=== PATIENT | female | born 1975 | race Caucasian/White ===

== ENCOUNTER → 2016-12-14 | Outpatient (CLI) | payer OTHER ==
[~2016-12-14] MED LIST: DICY10SO PO; FOLITAB11 PO; MAGN400T5 PO; MAXA5TAB10 PO; PROT20TA11 PO; RANI300T PO; SUCR1TA PO; VITAD1000T PO
[2016-12-14 16:54] LABS: BASO % 0.7 % (0.0-1.0); EOS # 0.1 K/mm3 (0.0-0.50); EOS % 1.4 % (0.0-3.0); LARGE UNSTAINED CELL # 0.1 K/mm3 (0.0-0.4); LARGE UNSTAINED CELL % 1.9 % (0.0-4.0); LYMPH # 2.2 K/mm3 (1.5-4.5); LYMPH % 27.4 % (24.0-44.0); MEAN CORPUSCULAR HEMOGLOBIN 29.9 pg (27.0-33.0); MEAN CORPUSCULAR HGB CONC 33.5 g/dl (32.0-36.5); MEAN CORPUSCULAR VOLUME 89.4 fl (80.0-96.0); MONO # 0.6 K/mm3 (0.0-0.8); MONO % 8.2 % (0.0-5.0); NEUTROPHILS # 4.5 K/mm3 (1.8-7.7); NEUTROPHILS % 60.4 % (36.0-66.0); PLATELET COUNT, AUTOMATED 434 k/mm3 (150-450); WHITE BLOOD COUNT 7.4 K/mm3 (4.0-10.0)
[2016-12-14 17:04] LABS: ALBUMIN/GLOBULIN RATIO 1.05 (1.00-1.93); ALKALINE PHOSPHATASE 53 U/L (45-117); ALT/SGPT 44 U/L (12-78); ANION GAP 8 MEQ/L (8-16); AST/SGOT 24 U/L (15-37); BILIRUBIN,TOTAL 0.5 MG/DL (0.2-1.0); BLOOD UREA NITROGEN 10 MG/DL (7-18); CALCIUM LEVEL 9.1 MG/DL (8.5-10.1); CARBON DIOXIDE LEVEL 29 MEQ/L (21-32); CHLORIDE LEVEL 102 MEQ/L (98-107); CHOLESTEROL LEVEL 130 MG/DL (<200); CREATININE FOR GFR 0.86 MG/DL (0.55-1.02); FERRITIN 34 NG/ML (8-252); FREE T4 1.23 NG/DL (0.76-1.46); GLOMERULAR FILTRATION RATE > 60.0 (>58); GLUCOSE, FASTING 88 MG/DL (70-105); MAGNESIUM LEVEL 2.1 MG/DL (1.8-2.4); POTASSIUM SERUM 4.3 MEQ/L (3.5-5.1); SODIUM LEVEL 139 MEQ/L (136-145); TOTAL IRON BINDING CAPACITY 393 UG/DL (250-450); TOTAL PROTEIN 7.8 GM/DL (6.4-8.2); TRIGLYCERIDES LEVEL 78 MG/DL (<150)
[2016-12-17 00:06] LABS: Lyme Disease IgG/IgM Antibodie <0.91 ISR (0.00-0.90); Lyme Disease IgM Ab Quantitati <0.80 index (0.00-0.79)
== END ==
LOC: M WUC 12:03
PROVIDERS: ATTEND Physician Assistant
DX: R53.83 Other fatigue (principal)

== ENCOUNTER → 2017-02-26 | Outpatient (CLI) | payer OTHER | LOC: M WUC 14:27 | PROVIDERS: ATTEND Internal Medicine Cardiovascular Disease | DX: R07.9 Chest pain, unspecified (principal) ==

== ENCOUNTER → 2017-04-09 | Outpatient (CLI) | payer OTHER ==
[~2017-04-09] MED LIST changes: +ASPI1TAB PO; +IBUP80TA PO
--- NOTE | 2017-04-10 09:59 | REP ---
Clinical: Acute pelvic pain . Technique: Transabdominal pelvic ultrasound followed by transvaginal examination for better evaluation of the endometrium and adnexa. Findings: Bladder is unremarkable and measures 9.6 x 8.3 x 5.4 cm . Normal anteverted uterus measures 9.0 x 3.4 x 4.5 cm . The endometrial complex measures 14.7 mm thickness. No discrete uterine or endometrial abnormalities are appreciated. Few Nabothian cysts identified in the lower uterine segment. Bilateral ovaries are normal in appearance. Right ovary measures 3.8 x 2.3 x 2.5 cm with 1.5 cm involuting physiologic cyst. Left ovary measures 2.9 x 1.8 x 1.5 cm. No pelvic fluid or adnexal mass lesion. Impression: 1. Essentially normal pelvic ultrasound. 2. Endometrial thickening likely related to menstrual cycle.
== END ==
LOC: M WHC 14:58
PROVIDERS: ATTEND Nurse Practitioner Women's Health
DX: R10.2 Pelvic and perineal pain (principal)

== ENCOUNTER → 2017-05-21 | Outpatient (CLI) | payer OTHER ==
[2017-05-21 20:55] LABS: BASO # 0.1 K/mm3 (0.0-0.2); BASO % 0.6 % (0.0-1.0); EOS # 0.1 K/mm3 (0.0-0.50); EOS % 1.3 % (0.0-3.0); LARGE UNSTAINED CELL # 0.1 K/mm3 (0.0-0.4); LARGE UNSTAINED CELL % 1.2 % (0.0-4.0); LYMPH # 2.4 K/mm3 (1.5-4.5); MEAN CORPUSCULAR HGB CONC 32.6 g/dl (32.0-36.5); MEAN CORPUSCULAR VOLUME 91.9 fl (80.0-96.0); MONO # 0.6 K/mm3 (0.0-0.8); MONO % 5.6 % (0.0-5.0); NEUTROPHILS # 7.2 K/mm3 (1.8-7.7); NEUTROPHILS % 69.3 % (36.0-66.0); PLATELET COUNT, AUTOMATED 371 k/mm3 (150-450); RED CELL DISTRIBUTION WIDTH 13.2 % (11.5-14.5); WHITE BLOOD COUNT 10.4 K/mm3 (4.0-10.0)
[2017-05-21 21:05] LABS: PERCENT SATURATION 13.5 % (13.2-45.0); URIC ACID 3.9 MG/DL (2.6-6.0)
[2017-05-21 22:09] LABS: ERYTHROCYTE SEDIMENTATION RATE 20 mm/hr (0-20)
[2017-05-29 00:11] LABS: Lyme Disease IgG/IgM Antibodie <0.91 ISR (0.00-0.90); Lyme Disease IgM Ab Quantitati <0.80 index (0.00-0.79)
== END ==
LOC: M WUC 15:58
PROVIDERS: ATTEND Physician Assistant
DX: M25.551 Pain in right hip (principal); D50.9 Iron deficiency anemia, unspecified

== ENCOUNTER → 2017-06-13 | Outpatient (REF) | payer OTHER | LOC: M LAB REF 16:58 | PROVIDERS: ATTEND Physician Assistant | DX: R30.0 Dysuria (principal) ==

== ENCOUNTER → 2017-06-21 | Outpatient (REF) | payer OTHER | LOC: M LAB REF 16:48 | PROVIDERS: ATTEND Physician Assistant | DX: R30.0 Dysuria (principal) ==

== ENCOUNTER → 2017-08-01 | Outpatient (CLI) | payer OTHER ==
[2017-08-01 19:47] LABS: MEAN CORPUSCULAR HEMOGLOBIN 29.2 pg (27.0-33.0); MEAN CORPUSCULAR HGB CONC 32.8 g/dl (32.0-36.5); MEAN CORPUSCULAR VOLUME 89.2 fl (80.0-96.0); RED CELL DISTRIBUTION WIDTH 13.1 % (11.5-14.5); WHITE BLOOD COUNT 12.1 10^3/uL (4.0-10.0)
[2017-08-01 20:07] LABS: CBCMD ORDERED? YES (YES)
== END ==
LOC: M WUC 15:49
PROVIDERS: ATTEND Physician Assistant
DX: D72.89 Other specified disorders of white blood cells (principal)

== ENCOUNTER → 2017-08-24 | Outpatient (REF) | payer OTHER ==
[2017-08-24 19:22] LABS: REASON FOR REVIEW COMPREHENSIVE REVIEW
== END ==
LOC: M LAB REF 16:25
PROVIDERS: ATTEND Physician Assistant
DX: D72.89 Other specified disorders of white blood cells (principal)

== ENCOUNTER → 2017-09-06 | Outpatient (REF) | payer OTHER | LOC: M SFHCWAGY 16:04 | PROVIDERS: ATTEND Nurse Practitioner Women's Health | DX: Z12.4 Encounter for screening for malignant neoplasm of cervix (principal) ==

== ENCOUNTER 2017-10-22 11:12 | Day surgery (SDC) | payer OTHER ==
[2017-10-22] MEDS: NS 1,000 ML IV (11:45)
[2017-10-22] MEDS ORDERED: PROPOFOL 200 MG/20 ML VIAL As Ordered (12:43)
[2017-10-22] MEDS ORDERED: ePHEDrine SULFATE 25 MG/5 ML(5MG/ML) SYRINGE As Ordered (12:43)
== END 2017-10-22 13:27 | disposition home or self-care (01) ==
LOC: M OPP 11:12
DX: K58.2 Mixed irritable bowel syndrome (principal); R19.4 Change in bowel habit; K64.8 Other hemorrhoids; K30 Functional dyspepsia; D50.9 Iron deficiency anemia, unspecified; K31.7 Polyp of stomach and duodenum; K21.9 Gastro-esophageal reflux disease without esophagitis; Z80.0 Family history of malignant neoplasm of digestive organs; R00.2 Palpitations; R06.02 Shortness of breath; M79.7 Fibromyalgia; M45.9 Ankylosing spondylitis of unspecified sites in spine; G43.909 Migraine, unspecified, not intractable, without status migrainosus; G47.30 Sleep apnea, unspecified; Z88.1 Allergy status to other antibiotic agents; Z88.8 Allergy status to other drugs, medicaments and biological substances; Z79.82 Long term (current) use of aspirin; Z79.899 Other long term (current) drug therapy
CPT/HCPCS: 45380

== ENCOUNTER → 2017-10-30 | Outpatient (CLI) | payer OTHER ==
[2017-10-30 20:39] LABS: FREE T4 1.09 NG/DL (0.76-1.46)
[2017-10-31 09:40] LABS: APPEARANCE, URINE CLOUDY (CLEAR); BACTERIA, URINE AUTO NEGATIVE (NEGATIVE); BILIRUBIN, URINE AUTO NEGATIVE (NEGATIVE); BLOOD, URINE BLOOD 1+ (NEGATIVE); COLOR, URINE YELLOW (YELLOW); GLUCOSE, URINE (UA) AUTO NEGATIVE (NEGATIVE); KETONE, URINE AUTO NEGATIVE (NEGATIVE); LEUKOCYTE ESTERASE, URINE AUTO TRACE (NEGATIVE); NITRITE, URINE AUTO NEGATIVE (NEGATIVE); PROTEIN, URINE AUTO NEGATIVE (NEGATIVE); RBC, URINE AUTO 2 /HPF (0-3); SPECIFIC GRAVITY URINE AUTO 1.008 (1.002-1.035); SQUAMOUS EPITHELIAL CELL UR AU 14 /HPF (0-6); UROBILINOGEN, URINE AUTO 0.2 mg/dL (0.0-2.0); WBC, URINE AUTO 2 /HPF (0-3); YEAST LIKE CELL URINE AUTO SMALL
== END ==
LOC: M WUC 15:58
DX: E04.1 Nontoxic single thyroid nodule (principal); R30.0 Dysuria; R31.9 Hematuria, unspecified
CPT/HCPCS: 84443

== ENCOUNTER → 2017-11-02 | Outpatient (REF) | payer OTHER ==
[2017-11-02 21:43] LABS: APPEARANCE, URINE MANUAL HAZY (CLEAR); COLOR, URINE MANUAL YELLOW (YELLOW)
[2017-11-02 21:44] LABS: BILIRUBIN, URINE MANUAL NEGATIVE (NEGATIVE); BLOOD URINE MANUAL TRACE (NEGATIVE); GLUCOSE, URINE (UA) MANUAL NEGATIVE (NEGATIVE); KETONE, URINE MANUAL NEGATIVE (NEGATIVE); LEUKOCYTE ESTERASE, URINE MAN NEGATIVE (NEGATIVE); MICROSCOPIC INDICATED? MAN YES (NO); NITRITE, URINE MANUAL NEGATIVE (NEGATIVE); PH,URINE MAN 6.5 UNITS (5.0 - 7.0); PROTEIN, URINE MANUAL NEGATIVE (NEGATIVE); UROBILINOGEN, URINE MANUAL NORMAL (NORMAL)
[2017-11-02 22:00] LABS: SQUAMOUS EPITHELIAL CELL URINE LARGE AMOUNT /hpf (SMALL AMT)
[2017-11-02 22:01] LABS: BACTERIA, URINE LARGE AMOUNT; HYALINE CAST, URINE NONE SEEN /lpf (0-1); MICROSCOPIC EXAM PERFORMED; MUCUS, URINE SMALL AMOUNT (NEGATIVE); YEAST, URINE MOD AMOUNT
== END ==
LOC: M LAB REF 19:04
DX: R30.0 Dysuria (principal); R10.31 Right lower quadrant pain

== ENCOUNTER → 2017-12-21 | Outpatient (CLI) | payer OTHER ==
[2017-12-21 17:12] LABS: BASO # 0.1 10^3/uL (0.0-0.2); BASO % 0.6 % (0.0-1.0); EOS # 0.1 10^3/uL (0.0-0.50); EOS % 0.9 % (0.0-3.0); HEMATOCRIT 36.8 % (36.0-47.0); HEMOGLOBIN 11.9 g/dl (12.0-16.0); IMMATURE GRANULOCYTE % 0.1 % (0-3.0); LYMPH # 2.1 10^3/uL (1.5-4.5); LYMPH % 25.5 % (24.0-44.0); MEAN CORPUSCULAR HEMOGLOBIN 27.2 pg (27.0-33.0); MEAN CORPUSCULAR HGB CONC 32.3 g/dl (32.0-36.5); MONO # 0.6 10^3/uL (0.0-0.8); NEUTROPHILS # 5.4 10^3/uL (1.8-7.7); NEUTROPHILS % 65.9 % (36.0-66.0); PLATELET COUNT, AUTOMATED 422 10^3/uL (150-450); RED BLOOD COUNT 4.38 10^6/uL (4.00-5.40); RED CELL DISTRIBUTION WIDTH 13.9 % (11.5-14.5); WHITE BLOOD COUNT 8.2 10^3/uL (4.0-10.0)
[2017-12-21 17:42] LABS: ERYTHROCYTE SEDIMENTATION RATE 26 mm/hr (0-20)
== END ==
LOC: M WUC 14:16
DX: R22.1 Localized swelling, mass and lump, neck (principal)
CPT/HCPCS: 85025

== ENCOUNTER → 2017-12-26 | Outpatient (CLI) | payer OTHER ==
[2017-12-26 14:22] LABS: D-DIMER QUANT < 270.0 ng/ml (<500)
[2017-12-26 14:26] LABS: ALBUMIN 3.7 GM/DL (3.2-5.2); ALBUMIN/GLOBULIN RATIO 0.95 (1.00-1.93); ALKALINE PHOSPHATASE 55 U/L (45-117); ALT/SGPT 30 U/L (12-78); ANION GAP 8 MEQ/L (8-16); AST/SGOT 17 U/L (7-37); BILIRUBIN,TOTAL 0.5 MG/DL (0.2-1.0); BLOOD UREA NITROGEN 10 MG/DL (7-18); CARBON DIOXIDE LEVEL 28 MEQ/L (21-32); CHLORIDE LEVEL 104 MEQ/L (98-107); CREATININE FOR GFR 0.72 MG/DL (0.55-1.30); GLOMERULAR FILTRATION RATE > 60.0 (>58); GLUCOSE, FASTING 80 MG/DL (70-100); SODIUM LEVEL 140 MEQ/L (136-145); TOTAL PROTEIN 7.6 GM/DL (6.4-8.2)
[2017-12-26 15:00] LABS: ERYTHROCYTE SEDIMENTATION RATE 22 mm/hr (0-20)
== END ==
LOC: M WUC 12:47
DX: R06.02 Shortness of breath (principal)

== ENCOUNTER → 2018-02-05 | Outpatient (CLI) | payer OTHER | LOC: M SLEEP 19:55 | DX: G47.33 Obstructive sleep apnea (adult) (pediatric) (principal) | CPT/HCPCS: 95811 ==

== ENCOUNTER → 2018-02-14 | Outpatient (CLI) | payer OTHER ==
[2018-02-14 18:05] LABS: HEMATOCRIT 36.8 % (36.0-47.0); HEMOGLOBIN 11.7 g/dl (12.0-15.5); MEAN CORPUSCULAR HEMOGLOBIN 26.8 pg (27.0-33.0); MEAN CORPUSCULAR HGB CONC 31.8 g/dl (32.0-36.5); MEAN CORPUSCULAR VOLUME 84.4 fl (80.0-96.0); PLATELET COUNT, AUTOMATED 424 10^3/uL (150-450); RED BLOOD COUNT 4.36 10^6/uL (4.00-5.40); RED CELL DISTRIBUTION WIDTH 14.4 % (11.5-14.5); WHITE BLOOD COUNT 9.8 10^3/uL (4.0-10.0)
[2018-02-14 18:38] LABS: IRON (FE) 22 UG/DL (50-170); PERCENT SATURATION 5.2 % (13.2-45.0); TOTAL IRON BINDING CAPACITY 426 UG/DL (250-450)
== END ==
LOC: M WUC 15:53
DX: R06.02 Shortness of breath (principal)

== ENCOUNTER → 2018-02-28 | Outpatient (CLI) | payer OTHER ==
[2018-02-28 17:46] LABS: TROPONIN I < 0.02 NG/ML (< 0.10)
== END ==
LOC: M SMT 15:06
DX: R07.9 Chest pain, unspecified (principal)

== ENCOUNTER → 2018-03-06 | Outpatient (REF) | payer OTHER ==
[2018-03-07 10:59] LABS: BASO # 0.1 10^3/uL (0.0-0.2); BASO % 0.6 % (0.0-1.0); EOS # 0.1 10^3/uL (0.0-0.50); HEMATOCRIT 38.4 % (36.0-47.0); IMMATURE GRANULOCYTE % 0.1 % (0-3.0); LYMPH # 2.4 10^3/uL (1.5-4.5); LYMPH % 29.5 % (24.0-44.0); MEAN CORPUSCULAR HEMOGLOBIN 26.8 pg (27.0-33.0); MEAN CORPUSCULAR HGB CONC 31.3 g/dl (32.0-36.5); MEAN CORPUSCULAR VOLUME 85.9 fl (80.0-96.0); MONO # 0.5 10^3/uL (0.0-0.8); MONO % 6.1 % (0.0-5.0); NEUTROPHILS % 62.7 % (36.0-66.0); PLATELET COUNT, AUTOMATED 451 10^3/uL (150-450); RED BLOOD COUNT 4.47 10^6/uL (4.00-5.40); RED CELL DISTRIBUTION WIDTH 15.8 % (11.5-14.5)
[2018-03-07 11:49] LABS: ALBUMIN 3.9 GM/DL (3.2-5.2); ALBUMIN/GLOBULIN RATIO 0.91 (1.00-1.93); ALKALINE PHOSPHATASE 58 U/L (45-117); ALT/SGPT 30 U/L (12-78); ANION GAP 10 MEQ/L (8-16); AST/SGOT 20 U/L (7-37); BILIRUBIN,TOTAL 0.5 MG/DL (0.2-1.0); BLOOD UREA NITROGEN 11 MG/DL (7-18); C REACTIVE PROTEIN QUANTITATIV 0.97 MG/DL (0.00-0.30); CALCIUM LEVEL 8.9 MG/DL (8.5-10.1); CARBON DIOXIDE LEVEL 26 MEQ/L (21-32); CHLORIDE LEVEL 101 MEQ/L (98-107); CREATININE FOR GFR 0.84 MG/DL (0.55-1.30); FREE T4 1.13 NG/DL (0.76-1.46); GLOMERULAR FILTRATION RATE > 60.0 (>58); GLUCOSE, FASTING 73 MG/DL (70-100); POTASSIUM SERUM 4.1 MEQ/L (3.5-5.1); SODIUM LEVEL 137 MEQ/L (136-145); THYROID STIMULATING HORMONE 0.846 uIU/ML (0.358-3.740); TOTAL PROTEIN 8.2 GM/DL (6.4-8.2)
[2018-03-07 12:19] LABS: ERYTHROCYTE SEDIMENTATION RATE 28 mm/hr (0-20)
[2018-03-07 14:47] LABS: TOTAL 25(OH) VITAMIN D 20.6 NG/ML (30.0-100.0)
== END ==
LOC: M LABSMT 10:25
DX: A69.20 Lyme disease, unspecified (principal); E04.1 Nontoxic single thyroid nodule
CPT/HCPCS: 84443

== ENCOUNTER → 2018-03-27 | Outpatient (CLI) | payer OTHER | LOC: M RAD 11:07 | DX: R22.41 Localized swelling, mass and lump, right lower limb (principal) ==

== ENCOUNTER → 2018-03-27 | Outpatient (CLI) | payer OTHER ==
[2018-03-27 11:44] LABS: BASO # 0.1 10^3/uL (0.0-0.2); BASO % 0.7 % (0.0-1.0); EOS # 0.1 10^3/uL (0.0-0.50); EOS % 1.3 % (0.0-3.0); HEMATOCRIT 39.8 % (36.0-47.0); HEMOGLOBIN 12.8 g/dl (12.0-15.5); IMMATURE GRANULOCYTE % 0.2 % (0-3.0); LYMPH # 2.2 10^3/uL (1.5-4.5); LYMPH % 23.4 % (24.0-44.0); MEAN CORPUSCULAR HEMOGLOBIN 27.8 pg (27.0-33.0); MEAN CORPUSCULAR HGB CONC 32.2 g/dl (32.0-36.5); MEAN CORPUSCULAR VOLUME 86.3 fl (80.0-96.0); MONO # 0.7 10^3/uL (0.0-0.8); MONO % 6.9 % (0.0-5.0); NEUTROPHILS # 6.5 10^3/uL (1.8-7.7); NEUTROPHILS % 67.5 % (36.0-66.0); PLATELET COUNT, AUTOMATED 392 10^3/uL (150-450); RED BLOOD COUNT 4.61 10^6/uL (4.00-5.40); RED CELL DISTRIBUTION WIDTH 16.2 % (11.5-14.5); WHITE BLOOD COUNT 9.6 10^3/uL (4.0-10.0)
[2018-03-27 11:55] LABS: PROTHROMBIN TIME 12.2 SECONDS (12.4-14.5)
[2018-03-27 11:56] LABS: PARTIAL THROMBOPLASTIN TIME 29.7 SECONDS (26.8-37.9)
[2018-03-27 12:05] LABS: D-DIMER QUANT < 270.0 ng/ml (<500)
[2018-03-27 12:25] LABS: ALBUMIN 3.8 GM/DL (3.2-5.2); ALBUMIN/GLOBULIN RATIO 0.97 (1.00-1.93); ALKALINE PHOSPHATASE 55 U/L (45-117); ALT/SGPT 26 U/L (12-78); ANION GAP 10 MEQ/L (8-16); AST/SGOT 13 U/L (7-37); BILIRUBIN,TOTAL 0.3 MG/DL (0.2-1.0); BLOOD UREA NITROGEN 11 MG/DL (7-18); CALCIUM LEVEL 8.8 MG/DL (8.5-10.1); CARBON DIOXIDE LEVEL 29 MEQ/L (21-32); CHLORIDE LEVEL 102 MEQ/L (98-107); GLOMERULAR FILTRATION RATE > 60.0 (>58); GLUCOSE, FASTING 87 MG/DL (70-100); POTASSIUM SERUM 4.2 MEQ/L (3.5-5.1); SODIUM LEVEL 141 MEQ/L (136-145); TOTAL PROTEIN 7.7 GM/DL (6.4-8.2)
== END ==
LOC: M WUC 10:24
DX: R22.41 Localized swelling, mass and lump, right lower limb (principal)
CPT/HCPCS: 80053

== ENCOUNTER → 2018-04-18 | Outpatient (CLI) | payer OTHER ==
[2018-04-18 15:16] LABS: BASO # 0.1 10^3/uL (0.0-0.2); BASO % 0.6 % (0.0-1.0); EOS # 0.1 10^3/uL (0.0-0.50); EOS % 1.1 % (0.0-3.0); HEMATOCRIT 40.8 % (36.0-47.0); HEMOGLOBIN 13.1 g/dl (12.0-15.5); IMMATURE GRANULOCYTE % 0.4 % (0-3.0); LYMPH # 2.1 10^3/uL (1.5-4.5); MEAN CORPUSCULAR HEMOGLOBIN 28.2 pg (27.0-33.0); MEAN CORPUSCULAR HGB CONC 32.1 g/dl (32.0-36.5); MEAN CORPUSCULAR VOLUME 87.7 fl (80.0-96.0); MONO # 0.6 10^3/uL (0.0-0.8); MONO % 6.8 % (0.0-5.0); NEUTROPHILS # 5.5 10^3/uL (1.8-7.7); NEUTROPHILS % 66.1 % (36.0-66.0); PLATELET COUNT, AUTOMATED 445 10^3/uL (150-450); RED BLOOD COUNT 4.65 10^6/uL (4.00-5.40); RED CELL DISTRIBUTION WIDTH 15.8 % (11.5-14.5); WHITE BLOOD COUNT 8.3 10^3/uL (4.0-10.0)
[2018-04-18 15:27] LABS: IRON (FE) 37 UG/DL (50-170); PERCENT SATURATION 9.8 % (13.2-45.0); TOTAL IRON BINDING CAPACITY 378 UG/DL (250-450)
== END ==
LOC: M ADAMS 11:37
DX: D50.9 Iron deficiency anemia, unspecified (principal)
CPT/HCPCS: 83550

== ENCOUNTER → 2018-05-08 | Outpatient (CLI) | payer OTHER ==
[2018-05-08 17:19] LABS: NT-PRO BNP 15 PG/ML (<125)
[2018-05-08 17:19] LABS: TROPONIN I < 0.02 NG/ML (< 0.10)
== END ==
LOC: M SMT 15:00
DX: R06.00 Dyspnea, unspecified (principal)
CPT/HCPCS: 84484

== ENCOUNTER → 2018-05-27 | Outpatient (CLI) | payer OTHER ==
[2018-05-27 18:12] LABS: ESTIMATED AVERAGE GLUCOSE 108 MG/DL (60-110); FREE T4 1.07 NG/DL (0.76-1.46); HEMOGLOBIN A1c 5.4 %; RHEUMATOID FACTOR QUANT < 10.0 IU/ML (<15.0)
[2018-05-27 18:14] LABS: FOLATE 12.7 NG/ML; VITAMIN B12 LEVEL 441 PG/ML
[2018-05-27 19:00] LABS: ERYTHROCYTE SEDIMENTATION RATE 16 mm/hr (0-20)
[2018-05-28 14:37] LABS: ALBUMIN % 53.1 % (55.8-66.1); ALPHA-1-GLOBULIN % 4.1 % (2.9-4.9); ALPHA-2-GLOBULINS % 9.3 % (7.1-11.8)
[2018-05-28 14:38] LABS: ALBUMIN 4.25 GM/DL (3.29-5.55); ALPHA-1-GLOBULINS 0.33 GM/DL (0.17-0.41); ALPHA-2-GLOBULINS 0.74 GM/DL (0.42-0.99); BETA-1-GLOBULINS 0.59 GM/DL (0.28-0.60); BETA-1-GLOBULINS % 7.4 % (4.7-7.2); BETA-2-GLOBULINS 0.62 GM/DL (0.19-0.55); BETA-2-GLOBULINS % 7.7 % (3.2-6.5); GAMMA GLOBULIN % 18.4 % (11.1-18.8); GAMMA GLOBULINS 1.47 GM/DL (0.65-1.58)
[2018-06-01 08:06] LABS: ANTI DOUBLE STRAND-DNA AB <1 IU/mL (0-9); ANTINUCLEAR ANTIBODIES DIRECT Negative (Negative); SJOGREN'S ANTI SS-A <0.2 AI (0.0-0.9); SJOGREN'S ANTI SS-B <0.2 AI (0.0-0.9); VITAMIN B1 LEVEL WHOLE BLOOD 118.5 nmol/L (66.5-200.0); VITAMIN B6,PYRIDOXAL PHOSPHATE 6.1 ug/L (2.0-32.8); VITAMIN E(ALPHA TOCOPHEROL) 7.9 mg/L (7.0-25.1); VITAMIN E(GAMMA TOCOPHEROL) 1.6 mg/L (0.5-5.5)
== END ==
LOC: M SMT 11:31
DX: R20.0 Anesthesia of skin (principal); E07.9 Disorder of thyroid, unspecified; M35.00 Sjogren syndrome, unspecified
CPT/HCPCS: 82746

== ENCOUNTER → 2018-06-20 | Outpatient (CLI) | payer OTHER ==
[2018-06-20 18:32] LABS: D-DIMER QUANT < 270.0 ng/ml (<500)
== END ==
LOC: M WUC 16:55
DX: M79.602 Pain in left arm (principal); R22.32 Localized swelling, mass and lump, left upper limb
CPT/HCPCS: 36415

== ENCOUNTER → 2018-07-09 | Outpatient (REF) | payer OTHER ==
[2018-07-11 14:39] LABS: HPV HYBRID CAPTURE II Negative (Negative)
== END ==
LOC: M SFHCWAGY 15:40
DX: Z12.4 Encounter for screening for malignant neoplasm of cervix (principal)

== ENCOUNTER → 2018-07-23 | Outpatient (REF) | payer OTHER ==
[2018-07-23 13:24] LABS: BASO # 0.1 10^3/uL (0.0-0.2); BASO % 0.7 % (0.0-1.0); EOS # 0.1 10^3/uL (0.0-0.50); EOS % 1.4 % (0.0-3.0); HEMATOCRIT 42.1 % (36.0-47.0); HEMOGLOBIN 13.8 g/dl (12.0-15.5); IMMATURE GRANULOCYTE % 0.3 % (0-3.0); LYMPH # 2.2 10^3/uL (1.5-4.5); LYMPH % 24.2 % (24.0-44.0); MEAN CORPUSCULAR HEMOGLOBIN 29.8 pg (27.0-33.0); MEAN CORPUSCULAR HGB CONC 32.8 g/dl (32.0-36.5); MEAN CORPUSCULAR VOLUME 90.9 fl (80.0-96.0); MONO # 0.7 10^3/uL (0.0-0.8); MONO % 7.4 % (0.0-5.0); NEUTROPHILS # 5.9 10^3/uL (1.8-7.7); PLATELET COUNT, AUTOMATED 416 10^3/uL (150-450); RED BLOOD COUNT 4.63 10^6/uL (4.00-5.40); RED CELL DISTRIBUTION WIDTH 13.2 % (11.5-14.5); WHITE BLOOD COUNT 8.9 10^3/uL (4.0-10.0)
[2018-07-23 13:58] LABS: ERYTHROCYTE SEDIMENTATION RATE 19 mm/hr (0-20)
[2018-07-23 14:01] LABS: ALBUMIN 3.6 GM/DL (3.2-5.2); ALBUMIN/GLOBULIN RATIO 0.92 (1.00-1.93); ALKALINE PHOSPHATASE 59 U/L (45-117); ALT/SGPT 34 U/L (12-78); ANION GAP 7 MEQ/L (8-16); AST/SGOT 15 U/L (7-37); BILIRUBIN,TOTAL 0.3 MG/DL (0.2-1.0); BLOOD UREA NITROGEN 10 MG/DL (7-18); C REACTIVE PROTEIN QUANTITATIV 1.33 MG/DL (0.00-0.30); CALCIUM LEVEL 8.3 MG/DL (8.5-10.1); CARBON DIOXIDE LEVEL 27 MEQ/L (21-32); CHLORIDE LEVEL 105 MEQ/L (98-107); CHOLESTEROL LEVEL 122 MG/DL (<200); CHOLESTEROL RISK RATIO 2.904 (<5); CREATININE FOR GFR 0.88 MG/DL (0.55-1.30); FERRITIN 45 NG/ML (8-252); FOLATE 10.9 NG/ML; FREE T4 1.17 NG/DL (0.76-1.46); GLOMERULAR FILTRATION RATE > 60.0 (>58); GLUCOSE, FASTING 88 MG/DL (70-100); HDL CHOLESTEROL 42 MG/DL (>40); IRON (FE) 39 UG/DL (50-170); LDL CHOLESTEROL 55 MG/DL (<100); NON-HDL-C 80 MG/DL; SODIUM LEVEL 139 MEQ/L (136-145); TOTAL IRON BINDING CAPACITY 355 UG/DL (250-450); TOTAL PROTEIN 7.5 GM/DL (6.4-8.2); TRIGLYCERIDES LEVEL 124 MG/DL (<150)
[2018-07-25 00:09] LABS: Lyme Disease IgG/IgM Antibodie <0.91 ISR (0.00-0.90); Lyme Disease IgM Ab Quantitati <0.80 index (0.00-0.79)
== END ==
LOC: M LABDRWAD 12:47
DX: R53.83 Other fatigue (principal); E04.1 Nontoxic single thyroid nodule; A69.20 Lyme disease, unspecified

== ENCOUNTER 2018-08-03 13:02 | Emergency (ER) | payer OTHER ==
[2018-08-03 13:44] LABS: BASO # 0.1 10^3/uL (0.0-0.2); BASO % 0.5 % (0.0-1.0); EOS # 0.1 10^3/uL (0.0-0.50); EOS % 0.8 % (0.0-3.0); HEMOGLOBIN 13.2 g/dl (12.0-15.5); IMMATURE GRANULOCYTE % 0.2 % (0-3.0); LYMPH # 2.1 10^3/uL (1.5-4.5); LYMPH % 21.1 % (24.0-44.0); MEAN CORPUSCULAR HEMOGLOBIN 29.9 pg (27.0-33.0); MEAN CORPUSCULAR HGB CONC 33.8 g/dl (32.0-36.5); MEAN CORPUSCULAR VOLUME 88.2 fl (80.0-96.0); MONO # 0.5 10^3/uL (0.0-0.8); MONO % 4.7 % (0.0-5.0); NEUTROPHILS # 7.2 10^3/uL (1.8-7.7); NEUTROPHILS % 72.7 % (36.0-66.0); PLATELET COUNT, AUTOMATED 448 10^3/uL (150-450); RED BLOOD COUNT 4.42 10^6/uL (4.00-5.40); RED CELL DISTRIBUTION WIDTH 12.9 % (11.5-14.5); WHITE BLOOD COUNT 9.9 10^3/uL (4.0-10.0)
[2018-08-03] MEDS: ASPIRIN 81 MG CHEW TABLET PO (13:46)
[2018-08-03] MEDS: IPRATROPIUM 0.5MG/ALBUTEROL 2.5MG INH SOL UD 3ML (DUONEB)(J7620) NEB (13:47)
[2018-08-03 13:57] LABS: INR 0.94; PROTHROMBIN TIME 12.7 SECONDS (12.1-14.4)
[2018-08-03 13:58] LABS: VENOUS BASE EXCESS 0.3 (-2.0-2.0); VENOUS HCO3 24.1 MEQ/L (23.0-27.0); VENOUS O2 SATURATION 66.2 % (60.0-80.0); VENOUS PARTIAL PRESSURE CO2 36.4 mmHg (38.0-50.0); VENOUS PARTIAL PRESSURE O2 32.2 mmHg (30.0-50.0); VENOUS PH 7.438 UNITS (7.330-7.430); VENOUS TOTAL CO2 25.2 MEQ/L (24.0-28.0)
[2018-08-03 14:00] LABS: D-DIMER QUANT < 270.0 ng/ml (<500)
[2018-08-03 14:19] LABS: ANION GAP 7 MEQ/L (8-16); BLOOD UREA NITROGEN 8 MG/DL (7-18); CALCIUM LEVEL 9.2 MG/DL (8.5-10.1); CARBON DIOXIDE LEVEL 29 MEQ/L (21-32); CHLORIDE LEVEL 103 MEQ/L (98-107); CK-MB VALUE MASS < 1.0 NG/ML (<3.6); CPK CREATINE PHOSPHOKINASE 89 U/L (26-192); CREATININE FOR GFR 0.74 MG/DL (0.55-1.30); GLOMERULAR FILTRATION RATE > 60.0 (>58); GLUCOSE, FASTING 107 MG/DL (70-100); MB/CK RELATIVE INDEX 1.12 (< OR =4); NT-PRO BNP 38 PG/ML (<125); POTASSIUM SERUM 4.3 MEQ/L (3.5-5.1); SODIUM LEVEL 139 MEQ/L (136-145); TROPONIN I < 0.02 NG/ML (< 0.10)
== END 2018-08-03 14:57 | disposition home or self-care (01) ==
LOC: M ED 13:02
DX: M79.606 Pain in leg, unspecified (principal); R94.31 Abnormal electrocardiogram [ECG] [EKG]; Z88.8 Allergy status to other drugs, medicaments and biological substances
CPT/HCPCS: 71046

== ENCOUNTER → 2018-08-27 | Outpatient (CLI) | payer OTHER ==
[2018-08-27 13:39] LABS: BASO # 0.1 10^3/uL (0.0-0.2); BASO % 0.8 % (0.0-1.0); EOS # 0.1 10^3/uL (0.0-0.50); EOS % 1.3 % (0.0-3.0); HEMATOCRIT 41.3 % (36.0-47.0); HEMOGLOBIN 13.6 g/dl (12.0-15.5); IMMATURE GRANULOCYTE % 0.4 % (0-3.0); LYMPH # 1.9 10^3/uL (1.5-4.5); LYMPH % 23.5 % (24.0-44.0); MEAN CORPUSCULAR HEMOGLOBIN 29.6 pg (27.0-33.0); MEAN CORPUSCULAR HGB CONC 32.9 g/dl (32.0-36.5); MEAN CORPUSCULAR VOLUME 89.8 fl (80.0-96.0); MONO # 0.6 10^3/uL (0.0-0.8); MONO % 6.8 % (0.0-5.0); NEUTROPHILS # 5.6 10^3/uL (1.8-7.7); NEUTROPHILS % 67.2 % (36.0-66.0); PLATELET COUNT, AUTOMATED 448 10^3/uL (150-450); RED CELL DISTRIBUTION WIDTH 13.2 % (11.5-14.5); WHITE BLOOD COUNT 8.3 10^3/uL (4.0-10.0)
[2018-08-27 14:01] LABS: ALBUMIN 3.8 GM/DL (3.2-5.2); ALBUMIN/GLOBULIN RATIO 0.97 (1.00-1.93); ALKALINE PHOSPHATASE 53 U/L (45-117); ALT/SGPT 34 U/L (12-78); AMYLASE 23 U/L (25-115); ANION GAP 8 MEQ/L (8-16); AST/SGOT 19 U/L (7-37); BILIRUBIN,TOTAL 0.4 MG/DL (0.2-1.0); BLOOD UREA NITROGEN 15 MG/DL (7-18); CALCIUM LEVEL 9.2 MG/DL (8.5-10.1); CARBON DIOXIDE LEVEL 29 MEQ/L (21-32); CHLORIDE LEVEL 103 MEQ/L (98-107); CREATININE FOR GFR 0.82 MG/DL (0.55-1.30); GLOMERULAR FILTRATION RATE > 60.0 (>58); GLUCOSE, FASTING 96 MG/DL (70-100); LIPASE 114 U/L (73-393); POTASSIUM SERUM 4.1 MEQ/L (3.5-5.1); SODIUM LEVEL 140 MEQ/L (136-145); TOTAL PROTEIN 7.7 GM/DL (6.4-8.2)
== END ==
LOC: M SMT 09:15
DX: R10.12 Left upper quadrant pain (principal)
CPT/HCPCS: 82150

== ENCOUNTER → 2018-09-10 | Outpatient (CLI) | payer OTHER ==
[2018-09-10 16:57] LABS: ALBUMIN 3.7 GM/DL (3.2-5.2); ALBUMIN/GLOBULIN RATIO 1.09 (1.00-1.93); ALKALINE PHOSPHATASE 53 U/L (45-117); ALT/SGPT 38 U/L (12-78); AMYLASE 22 U/L (25-115); ANION GAP 6 MEQ/L (8-16); AST/SGOT 18 U/L (7-37); BILIRUBIN,TOTAL 0.3 MG/DL (0.2-1.0); BLOOD UREA NITROGEN 9 MG/DL (7-18); CALCIUM LEVEL 8.5 MG/DL (8.5-10.1); CARBON DIOXIDE LEVEL 29 MEQ/L (21-32); CHLORIDE LEVEL 104 MEQ/L (98-107); CREATININE FOR GFR 0.78 MG/DL (0.55-1.30); GLOMERULAR FILTRATION RATE > 60.0 (>58); GLUCOSE, FASTING 104 MG/DL (70-100); IMMUNOGLOBULIN A 273 MG/DL (70-400); IRON (FE) 45 UG/DL (50-170); LIPASE 119 U/L (73-393); PERCENT SATURATION 13.8 % (13.2-45.0); SODIUM LEVEL 139 MEQ/L (136-145); TOTAL IRON BINDING CAPACITY 327 UG/DL (250-450); TOTAL PROTEIN 7.1 GM/DL (6.4-8.2)
[2018-09-10 17:04] LABS: BASO # 0.1 10^3/uL (0.0-0.2); BASO % 0.6 % (0.0-1.0); EOS # 0.1 10^3/uL (0.0-0.50); EOS % 1.4 % (0.0-3.0); HEMATOCRIT 41.8 % (36.0-47.0); HEMOGLOBIN 13.6 g/dl (12.0-15.5); IMMATURE GRANULOCYTE % 0.4 % (0-3.0); LYMPH # 2.2 10^3/uL (1.5-4.5); LYMPH % 22.6 % (24.0-44.0); MEAN CORPUSCULAR HEMOGLOBIN 29.6 pg (27.0-33.0); MEAN CORPUSCULAR HGB CONC 32.5 g/dl (32.0-36.5); MEAN CORPUSCULAR VOLUME 90.9 fl (80.0-96.0); MONO # 0.8 10^3/uL (0.0-0.8); MONO % 7.7 % (0.0-5.0); NEUTROPHILS # 6.6 10^3/uL (1.8-7.7); NEUTROPHILS % 67.3 % (36.0-66.0); PLATELET COUNT, AUTOMATED 410 10^3/uL (150-450); RED CELL DISTRIBUTION WIDTH 13.2 % (11.5-14.5); WHITE BLOOD COUNT 9.8 10^3/uL (4.0-10.0)
[2018-09-12 10:12] LABS: TISSUE TRANSGLUTAMINASE IgA <2 U/mL (0-3)
== END ==
LOC: M WUC 12:15
DX: R10.13 Epigastric pain (principal); R19.4 Change in bowel habit
CPT/HCPCS: 82150

== ENCOUNTER → 2018-09-17 | Outpatient (CLI) | payer OTHER ==
[2018-09-17 14:09] LABS: TROPONIN I < 0.02 NG/ML (< 0.10)
== END ==
LOC: M SMT 10:08
DX: R07.9 Chest pain, unspecified (principal)
CPT/HCPCS: 84484

== ENCOUNTER → 2018-10-02 | Outpatient (CLI) | payer OTHER ==
[~2018-10-02] MED LIST changes: +IBUP-1022 PO
== END ==
LOC: M WUC 13:43
PROVIDERS: ATTEND Physician Assistant
DX: M79.661 Pain in right lower leg (principal)

== ENCOUNTER → 2018-10-21 | Outpatient (CLI) | payer OTHER ==
[2018-10-21 19:35] LABS: BASO # 0.1 10^3/uL (0.0-0.2); BASO % 0.6 % (0.0-1.0); EOS # 0.1 10^3/uL (0.0-0.50); EOS % 0.6 % (0.0-3.0); HEMATOCRIT 42.3 % (36.0-47.0); HEMOGLOBIN 14.2 g/dl (12.0-15.5); LYMPH # 2.7 10^3/uL (1.5-4.5); LYMPH % 21.1 % (24.0-44.0); MEAN CORPUSCULAR HEMOGLOBIN 29.8 pg (27.0-33.0); MEAN CORPUSCULAR HGB CONC 33.6 g/dl (32.0-36.5); MEAN CORPUSCULAR VOLUME 88.9 fl (80.0-96.0); MONO # 0.8 10^3/uL (0.0-0.8); NEUTROPHILS # 9.1 10^3/uL (1.8-7.7); NEUTROPHILS % 71.3 % (36.0-66.0); PLATELET COUNT, AUTOMATED 412 10^3/uL (150-450); RED BLOOD COUNT 4.76 10^6/uL (4.00-5.40); WHITE BLOOD COUNT 12.8 10^3/uL (4.0-10.0)
[2018-10-21 19:57] LABS: C REACTIVE PROTEIN QUANTITATIV 1.68 MG/DL (0.00-0.30); MAGNESIUM LEVEL 1.9 MG/DL (1.8-2.4); PERCENT SATURATION 14.2 % (13.2-45.0)
[2018-10-21 20:20] LABS: ERYTHROCYTE SEDIMENTATION RATE 20 mm/hr (0-20)
== END ==
LOC: M WUC 15:54
PROVIDERS: ATTEND Family Medicine
DX: D50.9 Iron deficiency anemia, unspecified (principal); M79.604 Pain in right leg; E55.9 Vitamin D deficiency, unspecified

== ENCOUNTER 2018-11-04 11:33 | Emergency (ER) | payer OTHER ==
[~2018-11-04] VITALS: Ht 160 cm; Wt 90.9 kg
[2018-11-04 12:03] LABS: BASO % 0.4 % (0.0-1.0); EOS # 0.1 10^3/uL (0.0-0.50); EOS % 0.8 % (0.0-3.0); HEMATOCRIT 42.8 % (36.0-47.0); HEMOGLOBIN 14.3 g/dl (12.0-15.5); LYMPH # 2.4 10^3/uL (1.5-4.5); LYMPH % 25.1 % (24.0-44.0); MEAN CORPUSCULAR HEMOGLOBIN 29.9 pg (27.0-33.0); MEAN CORPUSCULAR HGB CONC 33.4 g/dl (32.0-36.5); MEAN CORPUSCULAR VOLUME 89.4 fl (80.0-96.0); MONO # 0.6 10^3/uL (0.0-0.8); NEUTROPHILS # 6.6 10^3/uL (1.8-7.7); NEUTROPHILS % 67.4 % (36.0-66.0); PLATELET COUNT, AUTOMATED 474 10^3/uL (150-450); RED BLOOD COUNT 4.79 10^6/uL (4.00-5.40); WHITE BLOOD COUNT 9.7 10^3/uL (4.0-10.0)
[2018-11-04 12:13] LABS: INR 0.94; PROTHROMBIN TIME 12.7 SECONDS (12.1-14.4)
[2018-11-04 12:14] LABS: PARTIAL THROMBOPLASTIN TIME 29.2 SECONDS (25.4-37.6)
[2018-11-04 12:33] LABS: ALT/SGPT 31 U/L (12-78); BILIRUBIN,DIRECT 0.2 MG/DL (0.0-0.2); BILIRUBIN,TOTAL 0.5 MG/DL (0.2-1.0); BLOOD UREA NITROGEN 10 MG/DL (7-18); CALCIUM LEVEL 9.1 MG/DL (8.5-10.1); CARBON DIOXIDE LEVEL 26 MEQ/L (21-32); CHLORIDE LEVEL 102 MEQ/L (98-107); CK-MB VALUE MASS < 1.0 NG/ML (<3.6); CPK CREATINE PHOSPHOKINASE 53 U/L (26-192); CREATININE FOR GFR 0.81 MG/DL (0.55-1.30); FREE T4 1.24 NG/DL (0.76-1.46); GLOMERULAR FILTRATION RATE > 60.0 (>58); GLUCOSE, FASTING 83 MG/DL (70-100); LIPASE 102 U/L (73-393); MB/CK RELATIVE INDEX 1.89 (< OR =4); POTASSIUM SERUM 3.8 MEQ/L (3.5-5.1); SODIUM LEVEL 138 MEQ/L (136-145); TOTAL PROTEIN 8.1 GM/DL (6.4-8.2); TROPONIN I < 0.02 NG/ML (< 0.10)
[2018-11-04] MEDS ORDERED: ASPIRIN 81 MG CHEW TABLET PO ONE (12:45)
[2018-11-04] MEDS ORDERED: ISOVUE-370 76% 100ML VIAL (Q9967) As Ordered ONE (12:46)
[2018-11-04] MEDS ORDERED: GI COCKTAIL 50ML BTL(HYOSCYAMINE/MAALOX/LIDOCAINE VISCOUS)(1:3:1) PO ONE (13:00)
[2018-11-04] MEDS ORDERED: MORPHINE 4 MG/ML 1ML VIAL/SYRINGE (J2270) IV ONE (13:00)
--- NOTE | 2018-11-04 13:13 | REP ---
Clinical: Acute chest pain and shortness of breath . Technique: Axial contrast enhanced images from the thoracic inlet to the upper abdomen using 100 ml Isovue 370 intravenous contrast material with coronal and sagittal re-formations. Findings: Satisfactory enhancement of the pulmonary vasculature is achieved and no filling defects are identified to suggest pulmonary embolus. Thoracic aorta is normal caliber without aneurysm or dissection. Heart and pericardium are normal. Bilateral lung rush are clear and without acute pulmonary parenchymal consolidation or atelectasis. No nodule or mass lesion. No pleural effusion/reaction. No pneumothorax. No adenopathy. Impression: No evidence for pulmonary embolus. No acute pleuroparenchymal or mediastinal process. Electronically Signed by Myles Han MD 11/04/2018 01:06 P
[2018-11-04 13:24] VITALS: O2SAT 94
[2018-11-04 18:16] LABS: CK-MB VALUE MASS < 1.0 NG/ML (<3.6); CPK CREATINE PHOSPHOKINASE 69 U/L (26-192); MB/CK RELATIVE INDEX 1.45 (< OR =4); TROPONIN I < 0.02 NG/ML (< 0.10)
[2018-11-04 18:46] VITALS: BP 118/59
--- NOTE | 2018-11-05 21:01 | ECGEPIP ---
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
--- NOTE | 2018-11-05 21:12 | ECGEPIP ---
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
== END 2018-11-04 18:52 | disposition home or self-care (01) ==
LOC: M ED 11:33
DX: R06.02 Shortness of breath (principal); K21.9 Gastro-esophageal reflux disease without esophagitis; Z79.899 Other long term (current) drug therapy; Z88.8 Allergy status to other drugs, medicaments and biological substances; Z88.1 Allergy status to other antibiotic agents
CPT/HCPCS: 36415; 71275; 80048; 80076; 82550; 82553; 83690; 84439; 84443; 84484; 85025; 85610; 85730; 93005; 93041; 94760; 99285; Q9967

== ENCOUNTER → 2018-12-16 | Outpatient (REF) | payer OTHER | LOC: M WUC 12:02 | PROVIDERS: ATTEND Physician Assistant | DX: R10.10 Upper abdominal pain, unspecified (principal); R19.7 Diarrhea, unspecified ==

== ENCOUNTER → 2018-12-16 | Outpatient (CLI) | payer OTHER ==
[2018-12-16 12:33] LABS: BASO # 0.1 10^3/uL (0.0-0.2); BASO % 0.7 % (0.0-1.0); EOS # 0.1 10^3/uL (0.0-0.50); HEMATOCRIT 41.2 % (36.0-47.0); HEMOGLOBIN 13.8 g/dl (12.0-15.5); LYMPH # 1.9 10^3/uL (1.5-4.5); LYMPH % 21.4 % (24.0-44.0); MEAN CORPUSCULAR HEMOGLOBIN 30.1 pg (27.0-33.0); MEAN CORPUSCULAR HGB CONC 33.5 g/dl (32.0-36.5); MEAN CORPUSCULAR VOLUME 89.8 fl (80.0-96.0); MONO # 0.6 10^3/uL (0.0-0.8); MONO % 6.6 % (0.0-5.0); NEUTROPHILS # 6.2 10^3/uL (1.8-7.7); NEUTROPHILS % 70.1 % (36.0-66.0); PLATELET COUNT, AUTOMATED 440 10^3/uL (150-450); RED BLOOD COUNT 4.59 10^6/uL (4.00-5.40); WHITE BLOOD COUNT 8.9 10^3/uL (4.0-10.0)
[2018-12-16 12:41] LABS: ALBUMIN 3.7 GM/DL (3.2-5.2); ALT/SGPT 40 U/L (12-78); BILIRUBIN,TOTAL 0.4 MG/DL (0.2-1.0); BLOOD UREA NITROGEN 9 MG/DL (7-18); CALCIUM LEVEL 8.8 MG/DL (8.5-10.1); CARBON DIOXIDE LEVEL 28 MEQ/L (21-32); CHLORIDE LEVEL 103 MEQ/L (98-107); CREATININE FOR GFR 0.76 MG/DL (0.55-1.30); GLOMERULAR FILTRATION RATE > 60.0 (>58); GLUCOSE, FASTING 95 MG/DL (70-100); IRON (FE) 42 UG/DL (50-170); LIPASE 113 U/L (73-393); PERCENT SATURATION 11.7 % (13.2-45.0); POTASSIUM SERUM 4.1 MEQ/L (3.5-5.1); SODIUM LEVEL 138 MEQ/L (136-145); TOTAL IRON BINDING CAPACITY 358 UG/DL (250-450); TOTAL PROTEIN 7.7 GM/DL (6.4-8.2)
== END ==
LOC: M WUC 10:01
PROVIDERS: ATTEND Physician Assistant
DX: R10.10 Upper abdominal pain, unspecified (principal); D64.9 Anemia, unspecified

== ENCOUNTER → 2019-01-10 | Outpatient (REF) | payer OTHER ==
[~2019-01-10] MED LIST changes: -ASPI1TAB PO; +ASPI81TA26 PO
[2019-01-10 19:32] LABS: BASO # 0.1 10^3/uL (0.0-0.2); BASO % 0.7 % (0.0-1.0); EOS # 0.1 10^3/uL (0.0-0.50); EOS % 1.2 % (0.0-3.0); HEMATOCRIT 42.2 % (36.0-47.0); HEMOGLOBIN 13.7 g/dl (12.0-15.5); LYMPH # 2.7 10^3/uL (1.5-4.5); LYMPH % 27.3 % (24.0-44.0); MEAN CORPUSCULAR HEMOGLOBIN 29.6 pg (27.0-33.0); MEAN CORPUSCULAR HGB CONC 32.5 g/dl (32.0-36.5); MEAN CORPUSCULAR VOLUME 91.1 fl (80.0-96.0); MONO # 0.8 10^3/uL (0.0-0.8); MONO % 8.2 % (0.0-5.0); NEUTROPHILS # 6.1 10^3/uL (1.8-7.7); NEUTROPHILS % 62.3 % (36.0-66.0); PLATELET COUNT, AUTOMATED 454 10^3/uL (150-450); RED BLOOD COUNT 4.63 10^6/uL (4.00-5.40); WHITE BLOOD COUNT 9.8 10^3/uL (4.0-10.0)
[2019-01-10 19:36] LABS: ALBUMIN 4.2 GM/DL (3.2-5.2); ALT/SGPT 41 U/L (12-78); AMYLASE 22 U/L (25-115); BILIRUBIN,TOTAL 0.4 MG/DL (0.2-1.0); BLOOD UREA NITROGEN 8 MG/DL (7-18); CALCIUM LEVEL 9.1 MG/DL (8.5-10.1); CARBON DIOXIDE LEVEL 28 MEQ/L (21-32); CHLORIDE LEVEL 101 MEQ/L (98-107); CREATININE FOR GFR 0.84 MG/DL (0.55-1.30); GLOMERULAR FILTRATION RATE > 60.0 (>58); GLUCOSE, FASTING 81 MG/DL (70-100); LIPASE 104 U/L (73-393); POTASSIUM SERUM 3.7 MEQ/L (3.5-5.1); SODIUM LEVEL 137 MEQ/L (136-145); TOTAL PROTEIN 8.1 GM/DL (6.4-8.2)
== END ==
LOC: M LAB REF 10:07
PROVIDERS: ATTEND Physician Assistant Medical
DX: R10.13 Epigastric pain (principal)

== ENCOUNTER → 2019-01-24 | Outpatient (CLI) | payer OTHER ==
[~2019-01-24] MED LIST changes: +MAXA5TAB11 PO
--- NOTE | 2019-01-24 10:28 | REP ---
Complete abdominal sonography: Including the celiac and superior mesenteric artery Doppler flow measurements. History: Left upper quadrant and epigastric pain. Nausea and epigastric pain worsened by eating. Occasional diarrhea. Evaluate celiac artery with inspiration and expiration rule out median arcuate ligament syndrome. Comparison and imaging is available in the form of recent CT pulmonary angiogram November 04, 2018. Sagittal reformatted images from that CT angiogram are reviewed. Sonographic findings: Scanning through the right upper quadrant of the abdomen demonstrates a normal sized thin-walled gallbladder without evidence of stone or polyp. Common bile duct is normal measuring 0.6 centimeters in greatest diameter. There is evidence of fatty infiltration of the liver. No focal liver lesion is seen. No pancreatic abnormalities observed. The spleen is normal in size, 9.6 cm, and homogeneous in texture. There is no evidence of ascites. Renal cortical echogenicity pattern is normal and renal contours are smooth bilaterally. Right renal dimensions are 12.2 x 5.4 x 4.4 cm. The left kidney measures 12.0 x 0.9 x 5.4 cm. Proximal aorta is normal in caliber. Visceral arterial Doppler flow study: Image quality is substantially impaired by patient body habitus. The celiac axis are not and superior mesenteric artery velocities were measured with inspiration and are normal. Peak systolic flow velocity in the SMA is 72 cm/sec and that in the celiac axis is 113.5 cm/sec. Neither of these vessels could be assessed at expiration due to bowel gas and patient body habitus. Review of the CT pulmonary angiogram MPR images through the upper abdominal aorta demonstrate a normal non stenotic morphology to the celiac axis and superior mesenteric artery. Impression: There is fatty infiltration of the liver. Otherwise unremarkable complete abdominal sonography. There is no sonographic (or recent CT) evidence to suggest median arcuate ligament syndrome. Electronically Signed by Ryan Becerra MD 01/24/2019 10:18 A
== END ==
LOC: M RAD 08:52
PROVIDERS: ATTEND Physician Assistant Medical
DX: K76.0 Fatty (change of) liver, not elsewhere classified (principal)

== ENCOUNTER 2019-02-06 13:29 | Day surgery (SDC) | payer OTHER ==
[~2019-02-06] VITALS: Ht 160 cm; Wt 95.3 kg
[2019-02-06] MEDS ORDERED: NS 1,000 ML IV ONE (15:00)
[2019-02-06] MEDS ORDERED: fentaNYL 100 MCG/2 ML INJECTION (J3010) As Ordered ONE (15:06)
[2019-02-06] MEDS ORDERED: PROPOFOL 500 MG/50 ML VIAL As Ordered ONE (15:08)
[2019-02-06] MEDS ORDERED: LIDOCAINE 2% INJ 100 MG/5 ML SDV (FOR ANES.) As Ordered ONE (15:08)
--- NOTE | 2019-02-06 15:22 | ROOR ---
Patient Name: Elle Mcclendon Procedure Date: 02/06/2019 3:07 PM Date of : 1975 Age: 43 Room: [facility] Gender: Female Note Status: Finalized Procedure: Upper GI endoscopy Indications: Epigastric abdominal pain, Nausea Providers: Dusty WHITMAN MD Referring MD: Lisette RUDOLPH DO Requesting Provider: Medicines: Monitored Anesthesia Care Complications: No immediate complications. Procedure: Pre-Anesthesia Assessment: - The heart rate, respiratory rate, oxygen saturations, blood pressure, adequacy of pulmonary ventilation, and response to care were monitored throughout the procedure. The Endoscope was introduced through the mouth, and advanced to the second part of duodenum. The upper GI endoscopy was accomplished without difficulty. The patient tolerated the procedure well. Findings: The examined esophagus was normal. Small Hiatal Hernia. Three 5 mm sessile polyps with no stigmata of recent bleeding were found in the gastric antrum. The polyp was removed with a cold snare. Resection and retrieval were complete. The exam of the stomach was otherwise normal. The examined duodenum was normal. Impression: - Normal esophagus. - Small Hiatal Hernia. - Three gastric polyps-distal body and antrum. Resected and retrieved. - The stomach is otherwise normal. - Normal examined duodenum. Recommendation: - Observe patient's clinical course. - Telephone endoscopist for pathology results in 2 weeks. Dusty Whitman MD Dusty WHITMAN MD 02/06/2019 3:21:52 PM Electronically signed by Dusty WHITMAN MD Number of Addenda: 0 Note Initiated On: 02/06/2019 3:07 PM Estimated Blood Loss: Estimated blood loss: none.
[2019-02-06 15:50] VITALS: BP 126/78
== END 2019-02-06 15:59 | disposition home or self-care (01) ==
LOC: M OPP 13:29
PROVIDERS: ATTEND Internal Medicine Gastroenterology
DX: K31.7 Polyp of stomach and duodenum (principal); K44.9 Diaphragmatic hernia without obstruction or gangrene; R10.13 Epigastric pain; R11.0 Nausea
CPT/HCPCS: 43251; 88305; J3010

== ENCOUNTER → 2019-02-26 | Outpatient (CLI) | payer OTHER ==
[2019-02-26 20:01] LABS: BASO # 0.1 10^3/uL (0.0-0.2); BASO % 0.5 % (0.0-1.0); EOS # 0.1 10^3/uL (0.0-0.50); HEMATOCRIT 38.5 % (36.0-47.0); HEMOGLOBIN 12.7 g/dl (12.0-15.5); LYMPH # 1.8 10^3/uL (1.5-4.5); LYMPH % 15.4 % (24.0-44.0); MEAN CORPUSCULAR HEMOGLOBIN 30.4 pg (27.0-33.0); MEAN CORPUSCULAR VOLUME 92.1 fl (80.0-96.0); MONO # 0.7 10^3/uL (0.0-0.8); MONO % 6.1 % (0.0-5.0); NEUTROPHILS # 8.8 10^3/uL (1.8-7.7); NEUTROPHILS % 76.7 % (36.0-66.0); PLATELET COUNT, AUTOMATED 414 10^3/uL (150-450); RED BLOOD COUNT 4.18 10^6/uL (4.00-5.40); WHITE BLOOD COUNT 11.5 10^3/uL (4.0-10.0)
[2019-02-26 20:15] LABS: ALBUMIN 3.3 GM/DL (3.2-5.2); ALT/SGPT 32 U/L (12-78); BILIRUBIN,TOTAL 0.3 MG/DL (0.2-1.0); BLOOD UREA NITROGEN 9 MG/DL (7-18); C REACTIVE PROTEIN QUANTITATIV 1.24 MG/DL (0.00-0.30); CALCIUM LEVEL 8.4 MG/DL (8.5-10.1); CARBON DIOXIDE LEVEL 28 MEQ/L (21-32); CHLORIDE LEVEL 104 MEQ/L (98-107); CREATININE FOR GFR 0.74 MG/DL (0.55-1.30); FREE T4 1.02 NG/DL (0.76-1.46); GLOMERULAR FILTRATION RATE > 60.0 (>58); GLUCOSE, FASTING 91 MG/DL (70-100); POTASSIUM SERUM 3.8 MEQ/L (3.5-5.1); SODIUM LEVEL 139 MEQ/L (136-145); TOTAL PROTEIN 7.1 GM/DL (6.4-8.2)
[2019-02-26 20:16] LABS: FOLATE 9.8 NG/ML; TOTAL 25(OH) VITAMIN D 31.8 NG/ML (30.0-100.0); VITAMIN B12 LEVEL 399 PG/ML
[2019-02-26 21:52] LABS: HEMOGLOBIN A1c 5.3 %
[2019-03-01 00:07] LABS: Lyme Disease IgG/IgM Antibodie <0.91 ISR (0.00-0.90); Lyme Disease IgM Ab Quantitati <0.80 index (0.00-0.79)
== END ==
LOC: M WUC 15:44
PROVIDERS: ATTEND Physician Assistant
DX: R20.2 Paresthesia of skin (principal)

== ENCOUNTER → 2019-03-06 | Outpatient (CLI) | payer OTHER ==
[2019-03-06 17:28] LABS: BASO # 0.1 10^3/uL (0.0-0.2); BASO % 0.8 % (0.0-1.0); EOS # 0.1 10^3/uL (0.0-0.50); EOS % 1.1 % (0.0-3.0); HEMATOCRIT 42.6 % (36.0-47.0); LYMPH # 2.7 10^3/uL (1.5-4.5); LYMPH % 23.9 % (24.0-44.0); MEAN CORPUSCULAR HEMOGLOBIN 29.7 pg (27.0-33.0); MEAN CORPUSCULAR HGB CONC 32.9 g/dl (32.0-36.5); MEAN CORPUSCULAR VOLUME 90.4 fl (80.0-96.0); MONO # 0.8 10^3/uL (0.0-0.8); MONO % 7.5 % (0.0-5.0); NEUTROPHILS # 7.3 10^3/uL (1.8-7.7); NEUTROPHILS % 66.2 % (36.0-66.0); PLATELET COUNT, AUTOMATED 453 10^3/uL (150-450); RED BLOOD COUNT 4.71 10^6/uL (4.00-5.40); WHITE BLOOD COUNT 11.1 10^3/uL (4.0-10.0)
== END ==
LOC: M WUC 12:00
PROVIDERS: ATTEND Physician Assistant
DX: R20.2 Paresthesia of skin (principal); S90.562A Insect bite (nonvenomous), left ankle, initial encounter

== ENCOUNTER → 2019-03-27 | Outpatient (CLI) | payer OTHER ==
[2019-03-27 16:48] LABS: BASO # 0.1 10^3/uL (0.0-0.2); BASO % 0.7 % (0.0-1.0); EOS # 0.1 10^3/uL (0.0-0.50); EOS % 1.2 % (0.0-3.0); HEMATOCRIT 42.2 % (36.0-47.0); HEMOGLOBIN 13.8 g/dl (12.0-15.5); LYMPH # 2.1 10^3/uL (1.5-4.5); MEAN CORPUSCULAR HGB CONC 32.7 g/dl (32.0-36.5); MEAN CORPUSCULAR VOLUME 91.7 fl (80.0-96.0); MONO # 0.6 10^3/uL (0.0-0.8); MONO % 7.3 % (0.0-5.0); NEUTROPHILS # 5.4 10^3/uL (1.8-7.7); NEUTROPHILS % 65.4 % (36.0-66.0); PLATELET COUNT, AUTOMATED 440 10^3/uL (150-450); WHITE BLOOD COUNT 8.2 10^3/uL (4.0-10.0)
== END ==
LOC: M WUC 12:02
PROVIDERS: ATTEND Physician Assistant
DX: R20.2 Paresthesia of skin (principal)

== ENCOUNTER → 2019-04-17 | Outpatient (REF) | payer OTHER ==
[~2019-04-17] MED LIST changes: +CHOL100029 PO; -VITAD1000T PO
== END ==
LOC: M SFHCWAGY 15:41
PROVIDERS: ATTEND Nurse Practitioner Women's Health
DX: R42 Dizziness and giddiness (principal); R53.83 Other fatigue; N92.0 Excessive and frequent menstruation with regular cycle; Z53.9 Procedure and treatment not carried out, unspecified reason

== ENCOUNTER → 2019-04-18 | Outpatient (CLI) | payer OTHER ==
[2019-04-18 16:41] LABS: BASO # 0.1 10^3/uL (0.0-0.2); BASO % 0.4 % (0.0-1.0); EOS # 0.1 10^3/uL (0.0-0.50); EOS % 0.9 % (0.0-3.0); HEMATOCRIT 40.9 % (36.0-47.0); HEMOGLOBIN 13.5 g/dl (12.0-15.5); LYMPH # 2.7 10^3/uL (1.5-4.5); LYMPH % 21.5 % (24.0-44.0); MEAN CORPUSCULAR HEMOGLOBIN 29.2 pg (27.0-33.0); MEAN CORPUSCULAR VOLUME 88.5 fl (80.0-96.0); MONO # 0.8 10^3/uL (0.0-0.8); MONO % 6.4 % (0.0-5.0); NEUTROPHILS # 8.9 10^3/uL (1.8-7.7); NEUTROPHILS % 70.4 % (36.0-66.0); PLATELET COUNT, AUTOMATED 404 10^3/uL (150-450); RED BLOOD COUNT 4.62 10^6/uL (4.00-5.40); WHITE BLOOD COUNT 12.7 10^3/uL (4.0-10.0)
== END ==
LOC: M WUC 14:16
PROVIDERS: ATTEND Nurse Practitioner Women's Health
DX: R53.83 Other fatigue (principal); N92.0 Excessive and frequent menstruation with regular cycle

== ENCOUNTER → 2019-05-26 | Outpatient (CLI) | payer OTHER ==
[~2019-05-26] MED LIST changes: -CHOL100029 PO; +VITAD1000T PO
[2019-05-26 16:42] LABS: BASO # 0.1 10^3/uL (0.0-0.2); BASO % 0.7 % (0.0-1.0); EOS # 0.1 10^3/uL (0.0-0.50); EOS % 1.2 % (0.0-3.0); HEMATOCRIT 41.3 % (36.0-47.0); HEMOGLOBIN 13.4 g/dl (12.0-15.5); LYMPH # 1.7 10^3/uL (1.5-4.5); LYMPH % 18.1 % (24.0-44.0); MEAN CORPUSCULAR HEMOGLOBIN 29.7 pg (27.0-33.0); MEAN CORPUSCULAR HGB CONC 32.4 g/dl (32.0-36.5); MEAN CORPUSCULAR VOLUME 91.6 fl (80.0-96.0); MONO # 0.5 10^3/uL (0.0-0.8); MONO % 5.7 % (0.0-5.0); NEUTROPHILS # 6.8 10^3/uL (1.8-7.7); NEUTROPHILS % 73.9 % (36.0-66.0); PLATELET COUNT, AUTOMATED 419 10^3/uL (150-450); RED BLOOD COUNT 4.51 10^6/uL (4.00-5.40); WHITE BLOOD COUNT 9.1 10^3/uL (4.0-10.0)
[2019-05-26 16:53] LABS: ALBUMIN 3.5 GM/DL (3.2-5.2); ALT/SGPT 33 U/L (12-78); BILIRUBIN,TOTAL 0.2 MG/DL (0.2-1.0); BLOOD UREA NITROGEN 11 MG/DL (7-18); C REACTIVE PROTEIN QUANTITATIV 1.31 MG/DL (0.00-0.30); CARBON DIOXIDE LEVEL 28 MEQ/L (21-32); CHLORIDE LEVEL 105 MEQ/L (98-107); CREATININE FOR GFR 0.81 MG/DL (0.55-1.30); FERRITIN 29 NG/ML (8-252); GLOMERULAR FILTRATION RATE > 60.0 (>58); GLUCOSE, FASTING 109 MG/DL (70-100); IRON (FE) 46 UG/DL (50-170); PERCENT SATURATION 12.3 % (13.2-45.0); POTASSIUM SERUM 4.4 MEQ/L (3.5-5.1); SODIUM LEVEL 139 MEQ/L (136-145); TOTAL IRON BINDING CAPACITY 373 UG/DL (250-450); TOTAL PROTEIN 7.6 GM/DL (6.4-8.2)
[2019-05-26 17:28] LABS: ERYTHROCYTE SEDIMENTATION RATE 18 mm/hr (0-20)
[2019-05-28 14:07] LABS: Lyme Disease IgG/IgM Antibodie <0.91 ISR (0.00-0.90); Lyme Disease IgM Ab Quantitati <0.80 index (0.00-0.79)
== END ==
LOC: M WUC 12:33
PROVIDERS: ATTEND Nurse Practitioner Family
DX: R53.83 Other fatigue (principal)

== ENCOUNTER → 2019-07-10 | Outpatient (REF) | payer OTHER ==
[~2019-07-10] MED LIST changes: +CHOL100029 PO; -VITAD1000T PO
[2019-07-16 08:20] LABS: HPV HYBRID CAPTURE II Negative (Negative)
== END ==
LOC: M SFHCWAGY 16:00
PROVIDERS: ATTEND Nurse Practitioner Women's Health
DX: Z12.4 Encounter for screening for malignant neoplasm of cervix (principal)

== ENCOUNTER → 2019-08-06 | Outpatient (CLI) | payer OTHER ==
--- NOTE | 2019-08-07 14:48 | SLEEPCENT ---
DATE OF PROCEDURE: 08/06/2019 ORDERED BY: Meghan Rao NP Nocturnal polysomnography was performed for re-titration of pressure therapy in this patient with obstructive sleep apnea syndrome; apnea-hypopnea index 8.2. For testing a Maged, Simplus full-face mask of small size was used; 4 cm of water pressure were applied to the circuit and the lights were extinguished. 7 hours and 53 minutes of data were reviewed. There were 373.5 minutes of sleep identified. Sleep latency was prolonged at 64 minutes. Rapid eye movement (REM) latency was prolonged at 241 minutes. Sleep architecture was fair with 2 REM cycles. Overall sleep efficiency 80%. The electrocardiogram showed a sinus rhythm with an average heart rate of 80 beats per minute. Electroencephalogram (EEG) showed reasonably normal waveforms for awake and sleep stages. Respiratory events were found best palliated with CPAP at a pressure of +12. Minimal limb activity in the EMG leads and remaining measures of sleep physiology were normal. IMPRESSION: Obstructive sleep apnea syndrome (G47.33). RECOMMENDATIONS: Nightly use of pressure therapy 12 cm of water.
== END ==
LOC: M SLEEP 19:48
PROVIDERS: ATTEND Physician Assistant
DX: G47.33 Obstructive sleep apnea (adult) (pediatric) (principal)

== ENCOUNTER → 2019-08-27 | Outpatient (CLI) | payer OTHER ==
[2019-08-27 20:26] LABS: BLOOD UREA NITROGEN 10 MG/DL (7-18); CALCIUM LEVEL 8.8 MG/DL (8.5-10.1); CARBON DIOXIDE LEVEL 27 MEQ/L (21-32); CHLORIDE LEVEL 102 MEQ/L (98-107); CREATININE FOR GFR 0.87 MG/DL (0.55-1.30); FERRITIN 21 NG/ML (8-252); GLOMERULAR FILTRATION RATE > 60.0 (>58); GLUCOSE, FASTING 106 MG/DL (70-100); IRON (FE) 40 UG/DL (50-170); PERCENT SATURATION 9.9 % (13.2-45.0); POTASSIUM SERUM 4.1 MEQ/L (3.5-5.1); SODIUM LEVEL 138 MEQ/L (136-145); TOTAL IRON BINDING CAPACITY 406 UG/DL (250-450)
[2019-08-27 20:28] LABS: BASO # 0.1 10^3/uL (0.0-0.2); BASO % 0.5 % (0.0-1.0); EOS # 0.1 10^3/uL (0.0-0.5); HEMOGLOBIN 12.5 g/dl (12.0-15.5); LYMPH # 2.2 10^3/uL (1.5-5.0); LYMPH % 21.8 % (24.0-44.0); MEAN CORPUSCULAR HEMOGLOBIN 28.3 pg (27.0-33.0); MEAN CORPUSCULAR HGB CONC 32.1 g/dl (32.0-36.5); MEAN CORPUSCULAR VOLUME 88.2 fl (80.0-96.0); MONO # 0.7 10^3/uL (0.0-0.8); MONO % 6.8 % (0.0-5.0); NEUTROPHILS % 69.6 % (36.0-66.0); PLATELET COUNT, AUTOMATED 467 10^3/uL (150-450); RED BLOOD COUNT 4.42 10^6/uL (4.00-5.40); WHITE BLOOD COUNT 10.1 10^3/uL (4.0-10.0)
== END ==
LOC: M WUC 15:43
PROVIDERS: ATTEND Nurse Practitioner Family
DX: R53.83 Other fatigue (principal)

== ENCOUNTER → 2019-09-02 | Outpatient (CLI) | payer OTHER ==
[2019-09-02 14:12] LABS: HEMATOCRIT 39.5 % (36.0-47.0); HEMOGLOBIN 12.8 g/dl (12.0-15.5); MEAN CORPUSCULAR HEMOGLOBIN 28.1 pg (27.0-33.0); MEAN CORPUSCULAR HGB CONC 32.4 g/dl (32.0-36.5); MEAN CORPUSCULAR VOLUME 86.6 fl (80.0-96.0); PLATELET COUNT, AUTOMATED 497 10^3/uL (150-450); RED BLOOD COUNT 4.56 10^6/uL (4.00-5.40)
[2019-09-02 14:36] LABS: BLOOD UREA NITROGEN 8 MG/DL (7-18); CARBON DIOXIDE LEVEL 31 MEQ/L (21-32); CHLORIDE LEVEL 103 MEQ/L (98-107); CREATININE FOR GFR 0.79 MG/DL (0.55-1.30); GLOMERULAR FILTRATION RATE > 60.0 (>58); GLUCOSE, FASTING 84 MG/DL (70-100); POTASSIUM SERUM 3.8 MEQ/L (3.5-5.1); SODIUM LEVEL 139 MEQ/L (136-145)
== END ==
LOC: M WUC 12:47
PROVIDERS: ATTEND Nurse Practitioner Family
DX: M79.661 Pain in right lower leg (principal)

== ENCOUNTER → 2019-09-02 | Outpatient (CLI) | payer OTHER ==
--- NOTE | 2019-09-02 14:53 | REP ---
Right lower extremity Duplex Doppler venous ultrasound: Real time compression and duplex Doppler interrogation of the right lower extremity deep venous system is performed. The right common femoral, superficial femoral and popliteal veins are fully compressible with transducer pressure and demonstrate normal spontaneous and phasic flow, without evidence of deep venous thrombosis. Impression: No evidence of deep venous thrombosis of the right lower extremity femoral popliteal venous system. Electronically Signed by Alex Mo MD 09/02/2019 02:44 P
== END ==
LOC: M RAD 13:54
PROVIDERS: ATTEND Nurse Practitioner Family
DX: M79.604 Pain in right leg (principal)

== ENCOUNTER → 2019-09-15 | Outpatient (CLI) | payer OTHER ==
[2019-09-15 17:07] LABS: C REACTIVE PROTEIN QUANTITATIV 1.44 MG/DL (0.00-0.30); FERRITIN 31 NG/ML (8-252); FREE T4 1.08 NG/DL (0.76-1.46); IRON (FE) 76 UG/DL (50-170); PERCENT SATURATION 18.1 % (13.2-45.0); RHEUMATOID FACTOR QUANT < 10.0 IU/ML (<15.0); THYROID STIMULATING HORMONE 0.916 uIU/ML (0.358-3.740); TOTAL IRON BINDING CAPACITY 421 UG/DL (250-450)
[2019-09-15 17:10] LABS: THYROID PEROXIDASE ANTIBODY 301.5 U/ML (<60.0)
[2019-09-15 17:17] LABS: BASO # 0.1 10^3/uL (0.0-0.2); BASO % 0.5 % (0.0-1.0); EOS # 0.1 10^3/uL (0.0-0.5); EOS % 0.7 % (0.0-3.0); HEMATOCRIT 42.4 % (36.0-47.0); HEMOGLOBIN 13.4 g/dl (12.0-15.5); LYMPH # 2.5 10^3/uL (1.5-5.0); LYMPH % 22.7 % (24.0-44.0); MEAN CORPUSCULAR HEMOGLOBIN 27.9 pg (27.0-33.0); MEAN CORPUSCULAR HGB CONC 31.6 g/dl (32.0-36.5); MEAN CORPUSCULAR VOLUME 88.3 fl (80.0-96.0); MONO # 0.6 10^3/uL (0.0-0.8); MONO % 5.3 % (0.0-5.0); NEUTROPHILS # 7.7 10^3/uL (1.5-8.5); NEUTROPHILS % 70.4 % (36.0-66.0); PLATELET COUNT, AUTOMATED 449 10^3/uL (150-450); WHITE BLOOD COUNT 10.9 10^3/uL (4.0-10.0)
[2019-09-15 17:52] LABS: ERYTHROCYTE SEDIMENTATION RATE 31 mm/hr (0-20)
== END ==
LOC: M WUC 12:16
PROVIDERS: ATTEND Family Medicine
DX: R76.8 Other specified abnormal immunological findings in serum (principal)

== ENCOUNTER → 2019-11-20 | Outpatient (REF) | payer OTHER | LOC: M LAB REF 19:18 | PROVIDERS: ATTEND Nurse Practitioner Family | DX: R10.30 Lower abdominal pain, unspecified (principal) ==

== ENCOUNTER → 2019-12-03 | Outpatient (CLI) | payer OTHER ==
[2019-12-03 13:49] LABS: C REACTIVE PROTEIN QUANTITATIV 1.75 MG/DL (0.00-0.30); FREE T4 1.12 NG/DL (0.76-1.46); THYROID STIMULATING HORMONE 0.919 uIU/ML (0.358-3.740); TOTAL 25(OH) VITAMIN D 49.7 NG/ML (30.0-100.0)
[2019-12-03 13:52] LABS: HEMOGLOBIN A1c 5.9 %
== END ==
LOC: M WUC 11:48
PROVIDERS: ATTEND Family Medicine
DX: E55.9 Vitamin D deficiency, unspecified (principal); D50.9 Iron deficiency anemia, unspecified; R60.0 Localized edema; R79.82 Elevated C-reactive protein (CRP)

== ENCOUNTER → 2020-04-09 | Outpatient (REF) | payer OTHER ==
[2020-04-09 16:44] LABS: BASO # 0.1 10^3/uL (0.0-0.2); BASO % 0.8 % (0.0-1.0); EOS # 0.2 10^3/uL (0.0-0.5); EOS % 1.3 % (0.0-3.0); HEMOGLOBIN 12.9 g/dl (12.0-15.5); LYMPH # 2.7 10^3/uL (1.5-5.0); LYMPH % 22.5 % (24.0-44.0); MEAN CORPUSCULAR HEMOGLOBIN 26.9 pg (27.0-33.0); MEAN CORPUSCULAR HGB CONC 31.5 g/dl (32.0-36.5); MEAN CORPUSCULAR VOLUME 85.6 fl (80.0-96.0); MONO # 0.7 10^3/uL (0.0-0.8); MONO % 6.1 % (0.0-5.0); NEUTROPHILS # 8.3 10^3/uL (1.5-8.5); PLATELET COUNT, AUTOMATED 461 10^3/uL (150-450); RED BLOOD COUNT 4.79 10^6/uL (4.00-5.40)
[2020-04-09 16:52] LABS: ALBUMIN 3.7 GM/DL (3.2-5.2); ALT/SGPT 41 U/L (12-78); BILIRUBIN,TOTAL 0.5 MG/DL (0.2-1.0); BLOOD UREA NITROGEN 10 MG/DL (7-18); C REACTIVE PROTEIN QUANTITATIV 1.63 MG/DL (0.00-0.30); CALCIUM LEVEL 9.2 MG/DL (8.5-10.1); CARBON DIOXIDE LEVEL 27 MEQ/L (21-32); CHLORIDE LEVEL 103 MEQ/L (98-107); CREATININE FOR GFR 0.84 MG/DL (0.55-1.30); FERRITIN 23 NG/ML (8-252); FREE T4 1.14 NG/DL (0.76-1.46); GLOMERULAR FILTRATION RATE > 60.0 (>58); GLUCOSE, FASTING 88 MG/DL (70-100); IRON (FE) 36 UG/DL (50-170); NT-PRO BNP 18 PG/ML (<125); PERCENT SATURATION 9.1 % (13.2-45.0); POTASSIUM SERUM 4.3 MEQ/L (3.5-5.1); SODIUM LEVEL 139 MEQ/L (136-145); TOTAL IRON BINDING CAPACITY 394 UG/DL (250-450)
[2020-04-09 16:54] LABS: TOTAL 25(OH) VITAMIN D 50.2 NG/ML (30.0-100.0)
[2020-04-09 16:58] LABS: HEMOGLOBIN A1c 6.1 %
== END ==
LOC: M LABDRWAD 16:24
PROVIDERS: ATTEND Family Medicine
DX: R73.9 Hyperglycemia, unspecified (principal); D50.9 Iron deficiency anemia, unspecified; E55.9 Vitamin D deficiency, unspecified

== ENCOUNTER → 2020-06-08 | Outpatient (REF) | payer OTHER | LOC: M WHC 15:15 | PROVIDERS: ATTEND Nurse Practitioner Women's Health | DX: Z12.4 Encounter for screening for malignant neoplasm of cervix (principal) ==

== ENCOUNTER → 2020-09-16 | Outpatient (REF) | payer OTHER | LOC: M LAB REF 16:57 | PROVIDERS: ATTEND Physician Assistant | DX: N39.0 Urinary tract infection, site not specified (principal) ==

== ENCOUNTER → 2020-09-17 | Outpatient (CLI) | payer OTHER ==
[2020-09-17 14:38] LABS: BASO # 0.1 10^3/uL (0.0-0.2); BASO % 0.8 % (0.0-1.0); EOS # 0.1 10^3/uL (0.0-0.5); EOS % 0.9 % (0.0-3.0); HEMATOCRIT 40.8 % (36.0-47.0); LYMPH # 2.4 10^3/uL (1.5-5.0); LYMPH % 26.6 % (24.0-44.0); MEAN CORPUSCULAR HEMOGLOBIN 27.7 pg (27.0-33.0); MEAN CORPUSCULAR HGB CONC 31.9 g/dl (32.0-36.5); MONO # 0.7 10^3/uL (0.0-0.8); MONO % 7.3 % (0.0-5.0); NEUTROPHILS # 5.9 10^3/uL (1.5-8.5); NEUTROPHILS % 64.2 % (36.0-66.0); PLATELET COUNT, AUTOMATED 435 10^3/uL (150-450); RED BLOOD COUNT 4.69 10^6/uL (4.00-5.40); WHITE BLOOD COUNT 9.1 10^3/uL (4.0-10.0)
[2020-09-17 15:03] LABS: ALBUMIN 3.9 GM/DL (3.2-5.2); ALT/SGPT 43 U/L (12-78); BILIRUBIN,TOTAL 0.3 MG/DL (0.2-1.0); BLOOD UREA NITROGEN 11 MG/DL (7-18); C REACTIVE PROTEIN QUANTITATIV 0.96 MG/DL (0.00-0.30); CALCIUM LEVEL 9.7 MG/DL (8.5-10.1); CARBON DIOXIDE LEVEL 29 MEQ/L (21-32); CHLORIDE LEVEL 104 MEQ/L (98-107); CREATININE FOR GFR 0.92 MG/DL (0.55-1.30); FERRITIN 24 NG/ML (8-252); FREE T4 1.06 NG/DL (0.76-1.46); GLOMERULAR FILTRATION RATE > 60.0 (>58); GLUCOSE, FASTING 83 MG/DL (70-100); IRON (FE) 38 UG/DL (50-170); PERCENT SATURATION 9.5 % (13.2-45.0); POTASSIUM SERUM 4.2 MEQ/L (3.5-5.1); SODIUM LEVEL 137 MEQ/L (136-145); TOTAL 25(OH) VITAMIN D 52.3 NG/ML (30.0-100.0); TOTAL IRON BINDING CAPACITY 400 UG/DL (250-450)
[2020-09-17 15:10] LABS: ERYTHROCYTE SEDIMENTATION RATE 24 mm/hr (0-20)
[2020-09-17 15:11] LABS: HEMOGLOBIN A1c 5.7 %
== END ==
LOC: M WUC 11:50
PROVIDERS: ATTEND Physician Assistant
DX: D50.9 Iron deficiency anemia, unspecified (principal); R73.01 Impaired fasting glucose; R79.82 Elevated C-reactive protein (CRP); Z13.29 Encounter for screening for other suspected endocrine disorder

== ENCOUNTER → 2020-10-15 | Outpatient (REF) | payer OTHER | LOC: M LAB REF 15:13 | PROVIDERS: ATTEND Physician Assistant | DX: N39.46 Mixed incontinence (principal) ==

== ENCOUNTER → 2020-12-22 | Outpatient (CLI) | payer OTHER ==
[2020-12-22 12:34] LABS: BASO # 0.1 10^3/uL (0.0-0.2); BASO % 0.8 % (0.0-1.0); EOS # 0.1 10^3/uL (0.0-0.5); EOS % 0.8 % (0.0-3.0); HEMATOCRIT 40.9 % (36.0-47.0); LYMPH % 25.4 % (24.0-44.0); MEAN CORPUSCULAR HEMOGLOBIN 27.1 pg (27.0-33.0); MEAN CORPUSCULAR HGB CONC 31.8 g/dl (32.0-36.5); MEAN CORPUSCULAR VOLUME 85.2 fl (80.0-96.0); MONO # 0.5 10^3/uL (0.0-0.8); MONO % 6.5 % (2.0-8.0); NEUTROPHILS # 5.2 10^3/uL (1.5-8.5); NEUTROPHILS % 66.2 % (36.0-66.0); PLATELET COUNT, AUTOMATED 427 10^3/uL (150-450); WHITE BLOOD COUNT 7.8 10^3/uL (4.0-10.0)
[2020-12-22 13:29] LABS: ALBUMIN 3.8 GM/DL (3.2-5.2); ALT/SGPT 33 U/L (12-78); BILIRUBIN,TOTAL 0.7 MG/DL (0.2-1.0); BLOOD UREA NITROGEN 10 MG/DL (7-18); CALCIUM LEVEL 9.6 MG/DL (8.5-10.1); CARBON DIOXIDE LEVEL 27 MEQ/L (21-32); CHLORIDE LEVEL 103 MEQ/L (98-107); CREATININE FOR GFR 0.78 MG/DL (0.55-1.30); GLOMERULAR FILTRATION RATE > 60.0 (>58); GLUCOSE, FASTING 97 MG/DL (70-100); MAGNESIUM LEVEL 1.9 MG/DL (1.8-2.4); POTASSIUM SERUM 4.2 MEQ/L (3.5-5.1); SODIUM LEVEL 135 MEQ/L (136-145); TOTAL PROTEIN 7.8 GM/DL (6.4-8.2)
== END ==
LOC: M WUC 10:11
PROVIDERS: ATTEND Physician Assistant
DX: R00.2 Palpitations (principal); R51.9 Headache, unspecified; R43.8 Other disturbances of smell and taste

== ENCOUNTER → 2020-12-28 | Outpatient (CLI) | payer OTHER ==
--- NOTE | 2020-12-28 11:36 | REPVR ---
PROCEDURE INFORMATION: Exam: MR Head Without Contrast Exam date and time: 12/28/2020 11:22 AM Age: 45 years old Clinical indication: Other: JENNINGS episodes of acute weakness dysgeusia TECHNIQUE: Imaging protocol: MR of the head without contrast. COMPARISON: MRI-Brain without Contrast 11/01/2015 7:04 PM FINDINGS: Brain: There is no extra-axial collection or intra-axial mass. There are minimal foci of T2/FLAIR white matter hyperintensity, nonspecific and unchanged. Normal parenchymal signal is otherwise preserved. There is no diffusion restriction. Cerebral ventricles: Normal. No ventriculomegaly. Bones/joints: Unremarkable. Paranasal sinuses: Normal as visualized. No acute sinusitis. Mastoid air cells: Normal as visualized. No mastoid effusion. Orbital cavity: Unremarkable. Soft tissues: Unremarkable. IMPRESSION: No acute intracranial abnormality. Electronically signed by: Atiya Cox On 12/28/2020 11:36:29 AM
== END ==
LOC: M RAD 10:16
PROVIDERS: ATTEND Internal Medicine Infectious Disease
DX: R51.9 Headache, unspecified (principal); Z15.89 Genetic susceptibility to other disease

== ENCOUNTER → 2021-01-03 | Outpatient (CLI) | payer OTHER ==
[2021-01-03 20:39] LABS: BASO # 0.1 10^3/uL (0.0-0.2); BASO % 0.7 % (0.0-1.0); EOS # 0.1 10^3/uL (0.0-0.5); HEMATOCRIT 38.2 % (36.0-47.0); LYMPH # 1.9 10^3/uL (1.5-5.0); LYMPH % 19.8 % (24.0-44.0); MEAN CORPUSCULAR HGB CONC 31.4 g/dl (32.0-36.5); MEAN CORPUSCULAR VOLUME 85.8 fl (80.0-96.0); MONO # 0.7 10^3/uL (0.0-0.8); MONO % 6.9 % (2.0-8.0); NEUTROPHILS # 6.9 10^3/uL (1.5-8.5); NEUTROPHILS % 71.3 % (36.0-66.0); PLATELET COUNT, AUTOMATED 473 10^3/uL (150-450); RED BLOOD COUNT 4.45 10^6/uL (4.00-5.40); WHITE BLOOD COUNT 9.7 10^3/uL (4.0-10.0)
[2021-01-03 20:57] LABS: ALBUMIN 3.8 GM/DL (3.2-5.2); ALT/SGPT 41 U/L (12-78); BILIRUBIN,TOTAL 0.2 MG/DL (0.2-1.0); BLOOD UREA NITROGEN 9 MG/DL (7-18); CARBON DIOXIDE LEVEL 28 MEQ/L (21-32); CHLORIDE LEVEL 106 MEQ/L (98-107); CREATININE FOR GFR 0.84 MG/DL (0.55-1.30); GLOMERULAR FILTRATION RATE > 60.0 (>58); GLUCOSE, FASTING 104 MG/DL (70-100); POTASSIUM SERUM 3.7 MEQ/L (3.5-5.1); SODIUM LEVEL 139 MEQ/L (136-145); TOTAL PROTEIN 7.5 GM/DL (6.4-8.2)
== END ==
LOC: M WUC 15:10
PROVIDERS: ATTEND Physician Assistant
DX: M54.9 Dorsalgia, unspecified (principal); R30.0 Dysuria

== ENCOUNTER → 2021-01-17 | Outpatient (CLI) | payer OTHER ==
--- NOTE | 2021-01-18 07:47 | REP ---
INDICATION: DYSURIA,DORSALGIA, UNSPECIFIED COMPARISON: None TECHNIQUE: Real time malloy scale ultrasound examination using curved array transducer. FINDINGS: Bilateral kidneys are normal in contour, size, echogenicity, and reniform shape without hydronephrosis, nephrolithiasis, cystic or renal mass lesion. Right kidney measures 12.9 x 4.5 x 4.8 cm. Left kidney measures 11.4 x 4.0 x 5.7 cm. IMPRESSION: Normal renal ultrasound. <Electronically signed by Myles Han > 01/18/21 0744
== END ==
LOC: M RAD 15:28
PROVIDERS: ATTEND Physician Assistant
DX: R30.0 Dysuria (principal); M54.9 Dorsalgia, unspecified

== ENCOUNTER → 2021-02-23 | Outpatient (CLI) | payer OTHER ==
[2021-02-23 11:47] LABS: BASO # 0.1 10^3/uL (0.0-0.2); BASO % 0.8 % (0.0-1.0); EOS # 0.1 10^3/uL (0.0-0.5); EOS % 1.1 % (0.0-3.0); HEMATOCRIT 41.8 % (36.0-47.0); HEMOGLOBIN 13.1 g/dl (12.0-15.5); LYMPH # 1.9 10^3/uL (1.5-5.0); LYMPH % 25.9 % (24.0-44.0); MEAN CORPUSCULAR HEMOGLOBIN 26.8 pg (27.0-33.0); MEAN CORPUSCULAR HGB CONC 31.3 g/dl (32.0-36.5); MEAN CORPUSCULAR VOLUME 85.5 fl (80.0-96.0); MONO # 0.6 10^3/uL (0.0-0.8); NEUTROPHILS # 4.6 10^3/uL (1.5-8.5); NEUTROPHILS % 63.6 % (36.0-66.0); PLATELET COUNT, AUTOMATED 426 10^3/uL (150-450); RED BLOOD COUNT 4.89 10^6/uL (4.00-5.40); WHITE BLOOD COUNT 7.2 10^3/uL (4.0-10.0)
[2021-02-23 12:16] LABS: ALBUMIN 3.7 GM/DL (3.2-5.2); ALT/SGPT 38 U/L (12-78); AMYLASE 18 U/L (25-115); BILIRUBIN,TOTAL 0.6 MG/DL (0.2-1.0); BLOOD UREA NITROGEN 10 MG/DL (7-18); CALCIUM LEVEL 8.8 MG/DL (8.5-10.1); CARBON DIOXIDE LEVEL 29 MEQ/L (21-32); CHLORIDE LEVEL 104 MEQ/L (98-107); CREATININE FOR GFR 0.84 MG/DL (0.55-1.30); GLOMERULAR FILTRATION RATE > 60.0 (>58); GLUCOSE, FASTING 83 MG/DL (70-100); LIPASE 68 U/L (73-393); POTASSIUM SERUM 4.1 MEQ/L (3.5-5.1); SODIUM LEVEL 136 MEQ/L (136-145); TOTAL PROTEIN 7.8 GM/DL (6.4-8.2)
== END ==
LOC: M WUC 10:18
PROVIDERS: ATTEND Physician Assistant Medical
DX: R10.13 Epigastric pain (principal)

== ENCOUNTER → 2021-03-13 | Outpatient (CLI) | payer OTHER ==
[~2021-03-13] MED LIST changes: +ALPR0.25 PO
== END ==
LOC: M LABSMTC 08:51
PROVIDERS: ATTEND Anesthesiology
DX: Z20.828 Contact with and (suspected) exposure to other viral communicable diseases (principal); Z11.59 Encounter for screening for other viral diseases

== ENCOUNTER 2021-03-18 13:03 | Day surgery (SDC) | payer OTHER ==
[~2021-03-18] VITALS: Ht 160 cm; Wt 93.0 kg
[~2021-03-18 13:03] MED LIST changes: +NS 1,000 ML IV ONE
[2021-03-18] MEDS ORDERED: fentaNYL 100 MCG/2 ML INJECTION (J3010) As Ordered ONE (15:38)
[2021-03-18] MEDS ORDERED: propofoL 200 MG/20 ML VIAL As Ordered ONE (15:50)
--- NOTE | 2021-03-18 15:51 | ROOR ---
Patient Name: Elle Mcclendon Procedure Date: 03/18/2021 3:36 PM Date of : 1975 Age: 45 Room: [facility] Gender: Female Note Status: Finalized Procedure: Upper GI endoscopy Indications: Epigastric abdominal pain, Heartburn Providers: Dusty Mendez MD Referring MD: Lisette RUDOLPH DO Requesting Provider: Medicines: Monitored Anesthesia Care Complications: No immediate complications. Procedure: Pre-Anesthesia Assessment: - The heart rate, respiratory rate, oxygen saturations, blood pressure, adequacy of pulmonary ventilation, and response to care were monitored throughout the procedure. The Endoscope was introduced through the mouth, and advanced to the second part of duodenum. The upper GI endoscopy was accomplished without difficulty. The patient tolerated the procedure well. Findings: A few 5 mm semi-sessile fundic gland polyps were found in the gastric fundus and in the gastric body. The polyp was removed with a cold snare. Resection and retrieval were complete. The exam of the stomach was otherwise normal. The examined esophagus was normal. The examined duodenum was normal. Impression: - A few fundic gland appearing polyps. Resected and retrieved. - The stomach is otherwise normal - Normal esophagus. - Normal examined duodenum. Recommendation: - Observe patient's clinical course. - Follow an antireflux regimen. Procedure Code(s): --- Professional --- 79933, Esophagogastroduodenoscopy, flexible, transoral; with removal of tumor(s), polyp(s), or other lesion(s) by snare technique Diagnosis Code(s): --- Professional --- R12, Heartburn R10.13, Epigastric pain K31.7, Polyp of stomach and duodenum CPT copyright 2019 [employer]. All rights reserved. The codes documented in this report are preliminary and upon director diabetes review may be revised to meet current compliance requirements. Dusty Mendez MD Dusty Mendez MD 03/18/2021 3:51:36 PM Electronically signed by Dusty Mendez MD Number of Addenda: 0 Note Initiated On: 03/18/2021 3:36 PM Estimated Blood Loss: Estimated blood loss: none.
--- NOTE | 2021-03-18 16:06 | ROOR ---
Patient Name: Elle Mcclendon Procedure Date: 03/18/2021 3:37 PM Date of : 1975 Age: 45 Room: [facility] Gender: Female Note Status: Finalized Procedure: Colonoscopy Indications: Hematochezia, Family history of colon cancer in a first-degree relative before age 60 years, Irritable bowel syndrome Providers: Dusty Mendez MD Referring MD: Lisette RUDOLPH DO Requesting Provider: Medicines: Monitored Anesthesia Care Complications: No immediate complications. Procedure: Pre-Anesthesia Assessment: - The heart rate, respiratory rate, oxygen saturations, blood pressure, adequacy of pulmonary ventilation, and response to care were monitored throughout the procedure. The Colonoscope was introduced through the anus and advanced to 10 cm into the ileum. The colonoscopy was performed without difficulty. The patient tolerated the procedure well. The quality of the bowel preparation was adequate. Findings: The perianal and digital rectal examinations were normal. Small Internal Hemorrhoids. The entire examined colon appeared normal on direct and retroflexion views. The terminal ileum appeared normal. Impression: - Small Internal Hemorrhoids. - The entire examined colon is normal on direct and retroflexion views. - The examined portion of the ileum was normal. - No specimens collected. Recommendation: - Continue present medications. - Use fiber, for example Citrucel, Fibercon, Konsyl or Metamucil. - Lactose free diet. Procedure Code(s): --- Professional --- 81121, Colonoscopy, flexible; diagnostic, including collection of specimen(s) by brushing or washing, when performed (separate procedure) Diagnosis Code(s): --- Professional --- K58.9, Irritable bowel syndrome without diarrhea K92.1, Melena (includes Hematochezia) Z80.0, Family history of malignant neoplasm of digestive organs CPT copyright 2019 [employer]. All rights reserved. The codes documented in this report are preliminary and upon feed adviser review may be revised to meet current compliance requirements. Dusty Mendez MD Dusty Mendez MD 03/18/2021 4:05:35 PM Electronically signed by Dusty Mendez MD Number of Addenda: 0 Note Initiated On: 03/18/2021 3:37 PM Estimated Blood Loss: Estimated blood loss: none.
[2021-03-18] MEDS ORDERED: LIDOCAINE 2% 100MG/5ML SDV (FOR ANES.) As Ordered ONE (16:11)
[2021-03-18 16:41] VITALS: BP 117/68
== END 2021-03-18 16:43 | disposition home or self-care (01) ==
LOC: M OPP 13:03
PROVIDERS: ATTEND Internal Medicine Gastroenterology
DX: K92.1 Melena (principal); Z80.0 Family history of malignant neoplasm of digestive organs; K58.9 Irritable bowel syndrome, unspecified; K31.7 Polyp of stomach and duodenum; R12 Heartburn; Z79.899 Other long term (current) drug therapy; Z88.1 Allergy status to other antibiotic agents; Z91.040 Latex allergy status; Z91.041 Radiographic dye allergy status
CPT/HCPCS: 43251; 45378; 88305; J3010

== ENCOUNTER → 2021-07-14 | Outpatient (CLI) | payer OTHER ==
[~2021-07-14] MED LIST changes: -NS 1,000 ML IV ONE
--- NOTE | 2021-07-14 09:16 | REP ---
INDICATION: ACUTE BRONCHITIS COMPARISON: 08/03/2018 TECHNIQUE: PA and lateral. FINDINGS: The mediastinum and cardiac silhouette are normal. The lung rush are clear and without acute consolidation, effusion, or pneumothorax. The skeletal structures are intact and normal. IMPRESSION: No acute cardiopulmonary process. <Electronically signed by Myles Han > 07/14/21 0912
== END ==
LOC: M WUC 08:57
PROVIDERS: ATTEND Physician Assistant
DX: J20.9 Acute bronchitis, unspecified (principal)

== ENCOUNTER → 2021-07-20 | Outpatient (CLI) | payer OTHER ==
[2021-07-20 16:00] LABS: BASO # 0.1 10^3/uL (0.0-0.2); BASO % 0.7 % (0.0-1.0); EOS # 0.1 10^3/uL (0.0-0.5); EOS % 0.8 % (0.0-3.0); HEMATOCRIT 42.4 % (36.0-47.0); HEMOGLOBIN 13.4 g/dl (12.0-15.5); LYMPH # 2.2 10^3/uL (1.5-5.0); LYMPH % 23.1 % (24.0-44.0); MEAN CORPUSCULAR HEMOGLOBIN 27.4 pg (27.0-33.0); MEAN CORPUSCULAR HGB CONC 31.6 g/dl (32.0-36.5); MEAN CORPUSCULAR VOLUME 86.7 fl (80.0-96.0); MONO # 0.6 10^3/uL (0.0-0.8); MONO % 6.5 % (2.0-8.0); NEUTROPHILS # 6.6 10^3/uL (1.5-8.5); NEUTROPHILS % 68.8 % (36.0-66.0); PLATELET COUNT, AUTOMATED 396 10^3/uL (150-450); RED BLOOD COUNT 4.89 10^6/uL (4.00-5.40); WHITE BLOOD COUNT 9.5 10^3/uL (4.0-10.0)
[2021-07-20 16:24] LABS: ALBUMIN 3.6 GM/DL (3.2-5.2); ALT/SGPT 38 U/L (12-78); BILIRUBIN,TOTAL 0.5 MG/DL (0.2-1.0); BLOOD UREA NITROGEN 9 MG/DL (7-18); C REACTIVE PROTEIN QUANTITATIV 1.09 MG/DL (0.00-0.30); CARBON DIOXIDE LEVEL 29 MEQ/L (21-32); CHLORIDE LEVEL 105 MEQ/L (98-107); CHOLESTEROL LEVEL 124 MG/DL (<200); CHOLESTEROL RISK RATIO 2.431 (<5); CREATININE FOR GFR 0.83 MG/DL (0.55-1.30); FREE T4 1.23 NG/DL (0.76-1.46); GLOMERULAR FILTRATION RATE > 60.0 (>58); GLUCOSE, FASTING 88 MG/DL (70-100); HDL CHOLESTEROL 51 MG/DL (>40); LDL CHOLESTEROL 60 MG/DL (<100); NON-HDL-C 73 MG/DL; POTASSIUM SERUM 4.1 MEQ/L (3.5-5.1); RHEUMATOID FACTOR QUANT < 10.0 IU/ML (<15.0); SODIUM LEVEL 138 MEQ/L (136-145); TOTAL PROTEIN 7.6 GM/DL (6.4-8.2); TRIGLYCERIDES LEVEL 67 MG/DL (<150)
[2021-07-20 17:21] LABS: ERYTHROCYTE SEDIMENTATION RATE 15 mm/hr (0-20)
== END ==
LOC: M WUC 11:22
PROVIDERS: ATTEND Physician Assistant
DX: Z00.00 Encounter for general adult medical examination without abnormal findings (principal); R79.82 Elevated C-reactive protein (CRP)

== ENCOUNTER → 2021-07-20 | Outpatient (CLI) | payer OTHER ==
[2021-07-20 16:20] LABS: CHOLESTEROL RISK RATIO 2.48 (<5)
== END ==
LOC: M WUC 11:28
PROVIDERS: ATTEND Nurse Practitioner Family
DX: R07.9 Chest pain, unspecified (principal); Z82.49 Family history of ischemic heart disease and other diseases of the circulatory system

== ENCOUNTER → 2021-08-08 | Outpatient (CLI) | payer OTHER ==
[2021-08-08 10:05] LABS: BASO # 0.1 10^3/uL (0.0-0.2); BASO % 0.8 % (0.0-1.0); EOS # 0.1 10^3/uL (0.0-0.5); EOS % 1.5 % (0.0-3.0); HEMATOCRIT 41.6 % (36.0-47.0); HEMOGLOBIN 13.4 g/dl (12.0-15.5); LYMPH # 1.9 10^3/uL (1.5-5.0); MEAN CORPUSCULAR HEMOGLOBIN 27.5 pg (27.0-33.0); MEAN CORPUSCULAR HGB CONC 32.2 g/dl (32.0-36.5); MEAN CORPUSCULAR VOLUME 85.4 fl (80.0-96.0); MONO # 0.7 10^3/uL (0.0-0.8); MONO % 7.2 % (2.0-8.0); NEUTROPHILS # 6.4 10^3/uL (1.5-8.5); NEUTROPHILS % 69.2 % (36.0-66.0); PLATELET COUNT, AUTOMATED 431 10^3/uL (150-450); RED BLOOD COUNT 4.87 10^6/uL (4.00-5.40); WHITE BLOOD COUNT 9.3 10^3/uL (4.0-10.0)
[2021-08-08 10:23] LABS: ALBUMIN 3.5 GM/DL (3.2-5.2); ALT/SGPT 41 U/L (12-78); BILIRUBIN,TOTAL 0.5 MG/DL (0.2-1.0); BLOOD UREA NITROGEN 8 MG/DL (7-18); CALCIUM LEVEL 9.3 MG/DL (8.5-10.1); CARBON DIOXIDE LEVEL 28 MEQ/L (21-32); CHLORIDE LEVEL 105 MEQ/L (98-107); CREATININE FOR GFR 0.74 MG/DL (0.55-1.30); GLOMERULAR FILTRATION RATE > 60.0 (>58); GLUCOSE, FASTING 105 MG/DL (70-100); LIPASE 73 U/L (73-393); POTASSIUM SERUM 4.3 MEQ/L (3.5-5.1); SODIUM LEVEL 137 MEQ/L (136-145); TOTAL PROTEIN 7.5 GM/DL (6.4-8.2)
== END ==
LOC: M WUC 08:41
PROVIDERS: ATTEND Physician Assistant
DX: R10.13 Epigastric pain (principal); R10.12 Left upper quadrant pain

== ENCOUNTER → 2021-08-23 | Outpatient (CLI) | payer OTHER ==
[2021-08-23 13:16] LABS: BASO # 0.1 10^3/uL (0.0-0.2); BASO % 0.8 % (0.0-1.0); EOS # 0.1 10^3/uL (0.0-0.5); EOS % 1.4 % (0.0-3.0); HEMATOCRIT 42.1 % (36.0-47.0); HEMOGLOBIN 13.5 g/dl (12.0-15.5); LYMPH % 27.1 % (24.0-44.0); MEAN CORPUSCULAR HEMOGLOBIN 27.8 pg (27.0-33.0); MEAN CORPUSCULAR HGB CONC 32.1 g/dl (32.0-36.5); MEAN CORPUSCULAR VOLUME 86.8 fl (80.0-96.0); MONO # 0.4 10^3/uL (0.0-0.8); MONO % 5.9 % (2.0-8.0); NEUTROPHILS # 4.7 10^3/uL (1.5-8.5); NEUTROPHILS % 64.7 % (36.0-66.0); PLATELET COUNT, AUTOMATED 403 10^3/uL (150-450); RED BLOOD COUNT 4.85 10^6/uL (4.00-5.40); WHITE BLOOD COUNT 7.2 10^3/uL (4.0-10.0)
[2021-08-23 13:31] LABS: HEMOGLOBIN A1c 5.5 %
[2021-08-23 13:57] LABS: FREE T4 1.19 NG/DL (0.76-1.46); THYROID STIMULATING HORMONE 1.16 uIU/ML (0.358-3.740)
== END ==
LOC: M WUC 08:53
PROVIDERS: ATTEND Physician Assistant Medical
DX: R68.81 Early satiety (principal); R10.84 Generalized abdominal pain; R11.0 Nausea

== ENCOUNTER → 2021-09-04 | Outpatient (REF) | payer OTHER | LOC: M LAB REF 09:30 | PROVIDERS: ATTEND Physician Assistant Medical | DX: R10.84 Generalized abdominal pain (principal); R14.2 Eructation; R11.0 Nausea ==

== ENCOUNTER → 2021-09-27 | Outpatient (CLI) | payer OTHER ==
--- NOTE | 2021-09-27 17:17 | REP ---
INDICATION: PELVIC PAIN. COMPARISON: 12/15/2019 TECHNIQUE: Transvesical and transvaginal imaging. FINDINGS: The uterus measures 9.2 x 3.9 x 3.1 cm. The parenchymal echo pattern is unchanged and again seen to be within normal limits. The endometrial echo complex is again seen to be within normal limits with a maximal thickness of 8 mm. The ovaries were poorly visualized. The imaged portion of the right ovary shows to measure approximately 3 x 1.9 x 1.8 cm with an RI 0.7 The imaged portion of the left ovary measures 2.4 x 1.7 x 2.3 cm and appears to be within normal limits with an RI 0.6. Incidental note is made of nabothian cyst Urinary bladder measures 11 x 8 x 8 cm. IMPRESSION: No abnormalities are identified, however, as per the technologist worksheet each ovary is poorly/incompletely visualized on any single image. Follow-up is suggested. <Electronically signed by Raman Mccoy > 09/27/21 [id number]
== END ==
LOC: M WHC 15:03
PROVIDERS: ATTEND Nurse Practitioner Women's Health
DX: R10.2 Pelvic and perineal pain (principal)

== ENCOUNTER → 2021-11-16 | Outpatient (CLI) | payer OTHER ==
[2021-11-16 15:39] LABS: BASO # 0.1 10^3/uL (0.0-0.2); BASO % 0.6 % (0.0-1.0); EOS # 0.1 10^3/uL (0.0-0.5); EOS % 0.7 % (0.0-3.0); HEMATOCRIT 40.1 % (36.0-47.0); LYMPH # 1.9 10^3/uL (1.5-5.0); LYMPH % 18.8 % (24.0-44.0); MEAN CORPUSCULAR HEMOGLOBIN 27.9 pg (27.0-33.0); MEAN CORPUSCULAR HGB CONC 32.4 g/dl (32.0-36.5); MEAN CORPUSCULAR VOLUME 86.1 fl (80.0-96.0); MONO # 0.6 10^3/uL (0.0-0.8); MONO % 5.9 % (2.0-8.0); NEUTROPHILS # 7.5 10^3/uL (1.5-8.5); NEUTROPHILS % 73.5 % (36.0-66.0); PLATELET COUNT, AUTOMATED 377 10^3/uL (150-450); RED BLOOD COUNT 4.66 10^6/uL (4.00-5.40); WHITE BLOOD COUNT 10.2 10^3/uL (4.0-10.0)
[2021-11-16 16:04] LABS: CK-MB VALUE MASS < 1.0 NG/ML (<3.6); CPK CREATINE PHOSPHOKINASE 63 U/L (26-192); MB/CK RELATIVE INDEX 1.59 (< OR =4)
[2021-11-16 16:05] LABS: ALBUMIN 3.6 GM/DL (3.2-5.2); ALT/SGPT 33 U/L (12-78); BILIRUBIN,TOTAL 0.3 MG/DL (0.2-1.0); BLOOD UREA NITROGEN 10 MG/DL (7-18); CALCIUM LEVEL 9.4 MG/DL (8.5-10.1); CARBON DIOXIDE LEVEL 26 MEQ/L (21-32); CHLORIDE LEVEL 105 MEQ/L (98-107); CREATININE FOR GFR 0.73 MG/DL (0.55-1.30); GLOMERULAR FILTRATION RATE > 60.0 (>58); GLUCOSE, FASTING 108 MG/DL (70-100); POTASSIUM SERUM 4.1 MEQ/L (3.5-5.1); SODIUM LEVEL 137 MEQ/L (136-145); TOTAL PROTEIN 7.5 GM/DL (6.4-8.2)
== END ==
LOC: M WUC 14:19
PROVIDERS: ATTEND Physician Assistant
DX: R06.02 Shortness of breath (principal); R00.2 Palpitations; M79.662 Pain in left lower leg

== ENCOUNTER → 2022-03-02 | Outpatient (CLI) | payer OTHER ==
[2022-03-02 10:18] LABS: BASO # 0.1 10^3/uL (0.0-0.2); BASO % 0.8 % (0.0-1.0); EOS # 0.1 10^3/uL (0.0-0.5); EOS % 1.5 % (0.0-3.0); HEMATOCRIT 39.8 % (36.0-47.0); HEMOGLOBIN 12.4 g/dl (12.0-15.5); MEAN CORPUSCULAR HEMOGLOBIN 26.6 pg (27.0-33.0); MEAN CORPUSCULAR HGB CONC 31.2 g/dl (32.0-36.5); MEAN CORPUSCULAR VOLUME 85.4 fl (80.0-96.0); MONO # 0.7 10^3/uL (0.0-0.8); MONO % 7.3 % (2.0-8.0); NEUTROPHILS # 6.2 10^3/uL (1.5-8.5); NEUTROPHILS % 68.1 % (36.0-66.0); PLATELET COUNT, AUTOMATED 504 10^3/uL (150-450); RED BLOOD COUNT 4.66 10^6/uL (4.00-5.40); WHITE BLOOD COUNT 9.2 10^3/uL (4.0-10.0)
[2022-03-02 10:49] LABS: ALBUMIN 3.5 GM/DL (3.2-5.2); ALT/SGPT 36 U/L (12-78); BILIRUBIN,TOTAL 0.7 MG/DL (0.2-1.0); BLOOD UREA NITROGEN 10 MG/DL (7-18); C REACTIVE PROTEIN QUANTITATIV 1.71 MG/DL (0.00-0.30); CALCIUM LEVEL 9.4 MG/DL (8.5-10.1); CARBON DIOXIDE LEVEL 28 MEQ/L (21-32); CHLORIDE LEVEL 106 MEQ/L (98-107); GLOMERULAR FILTRATION RATE > 60.0 (>58); GLUCOSE, FASTING 95 MG/DL (70-100); SODIUM LEVEL 142 MEQ/L (136-145); TOTAL PROTEIN 7.6 GM/DL (6.4-8.2)
[2022-03-02 11:18] LABS: ERYTHROCYTE SEDIMENTATION RATE > 140 mm/hr (0-20)
[2022-03-02 11:33] LABS: HEMOGLOBIN A1c 5.7 %
[2022-03-02 13:32] LABS: TOTAL 25(OH) VITAMIN D 50.8 NG/ML (30.0-100.0)
== END ==
LOC: M WUC 08:19
PROVIDERS: ATTEND Family Medicine
DX: R79.82 Elevated C-reactive protein (CRP) (principal); D50.9 Iron deficiency anemia, unspecified; R70.0 Elevated erythrocyte sedimentation rate; R73.01 Impaired fasting glucose; E55.9 Vitamin D deficiency, unspecified

== ENCOUNTER → 2022-03-09 | Outpatient (CLI) | payer OTHER | LOC: M PLALAB 15:06 | PROVIDERS: ATTEND Family Medicine | DX: R06.02 Shortness of breath (principal) ==

== ENCOUNTER → 2022-08-24 | Outpatient (CLI) | payer OTHER ==
[2022-08-24 18:28] LABS: BASO # 0.1 10^3/uL (0.0-0.2); BASO % 0.5 % (0.0-1.0); EOS # 0.1 10^3/uL (0.0-0.5); EOS % 0.7 % (0.0-3.0); HEMATOCRIT 40.5 % (36.0-47.0); HEMOGLOBIN 12.6 g/dl (12.0-15.5); LYMPH # 2.6 10^3/uL (1.5-5.0); LYMPH % 21.7 % (24.0-44.0); MEAN CORPUSCULAR HEMOGLOBIN 26.9 pg (27.0-33.0); MEAN CORPUSCULAR HGB CONC 31.1 g/dl (32.0-36.5); MEAN CORPUSCULAR VOLUME 86.4 fl (80.0-96.0); MONO # 0.7 10^3/uL (0.0-0.8); MONO % 6.1 % (2.0-8.0); NEUTROPHILS # 8.3 10^3/uL (1.5-8.5); NEUTROPHILS % 70.6 % (36.0-66.0); PLATELET COUNT, AUTOMATED 430 10^3/uL (150-450); RED BLOOD COUNT 4.69 10^6/uL (4.00-5.40); WHITE BLOOD COUNT 11.8 10^3/uL (4.0-10.0)
[2022-08-24 18:56] LABS: ALBUMIN 3.8 G/DL (3.2-5.2); ALT/SGPT 36 U/L (7.0-40); BILIRUBIN,TOTAL 0.3 MG/DL (0.3-1.2); BLOOD UREA NITROGEN 16 MG/DL (9-23); CALCIUM LEVEL 9.8 MG/DL (8.5-10.1); CARBON DIOXIDE LEVEL 26 MMOL/L (20-31); CHLORIDE LEVEL 102 MMOL/L (98-107); CREATININE FOR GFR 0.77 MG/DL (0.55-1.30); GLOMERULAR FILTRATION RATE > 60.0 (>58); GLUCOSE, FASTING 89 MG/DL (60-100); LIPASE 36 U/L (12-53); POTASSIUM SERUM 4.1 MMOL/L (3.5-5.1); SODIUM LEVEL 137 MMOL/L (136-145); TOTAL PROTEIN 7.3 G/DL (5.7-8.2)
== END ==
LOC: M WUC 12:55
PROVIDERS: ATTEND Student in an Organized Health Care Education/Training Program
DX: R10.12 Left upper quadrant pain (principal); R30.0 Dysuria

== ENCOUNTER → 2022-09-20 | Outpatient (CLI) | payer OTHER | LOC: M RAD 08:02 | DX: R42 Dizziness and giddiness (principal); E34.8 Other specified endocrine disorders ==

== ENCOUNTER → 2022-10-16 | Outpatient (REF) | payer OTHER | LOC: M SFHCWAGY 13:12 | PROVIDERS: ATTEND Specialist | DX: Z12.4 Encounter for screening for malignant neoplasm of cervix (principal) | CPT/HCPCS: 87624; G0123 ==

== ENCOUNTER → 2022-12-12 | Outpatient (CLI) | payer OTHER | LOC: M WHC 11:26 | PROVIDERS: ATTEND Specialist | DX: N64.4 Mastodynia (principal) ==

== ENCOUNTER → 2022-12-19 | Outpatient (CLI) | payer OTHER ==
[2022-12-19 16:59] LABS: FERRITIN 11.4 NG/ML (7.3-270.7)
[2022-12-19 17:00] LABS: THYROID STIMULATING HORMONE 1.657 uIU/ML (0.55-4.78)
[2022-12-19 17:01] LABS: IRON (FE) 36 UG/DL (50-170)
[2022-12-19 17:02] LABS: ALBUMIN 3.6 G/DL (3.2-5.2); ALKALINE PHOSPHATASE 58 U/L (46-116); ALT/SGPT 23 U/L (7.0-40); AST/SGOT 17 U/L (<34); BILIRUBIN,TOTAL 0.3 MG/DL (0.3-1.2); BLOOD UREA NITROGEN 14 MG/DL (9-23); CALCIUM LEVEL 9.1 MG/DL (8.5-10.1); CARBON DIOXIDE LEVEL 26 MMOL/L (20-31); CHLORIDE LEVEL 103 MMOL/L (98-107); CREATININE FOR GFR 0.72 MG/DL (0.55-1.30); GLOMERULAR FILTRATION RATE > 60.0 (>58); GLUCOSE, FASTING 99 MG/DL (60-100); POTASSIUM SERUM 4.1 MMOL/L (3.5-5.1); SODIUM LEVEL 135 MMOL/L (136-145); TOTAL PROTEIN 7.2 G/DL (5.7-8.2)
[2022-12-19 17:04] LABS: VITAMIN B12 LEVEL 334 PG/ML (211-911)
[2022-12-19 17:07] LABS: BASO # 0.1 10^3/uL (0.0-0.2); BASO % 0.7 % (0.0-1.0); EOS # 0.2 10^3/uL (0.0-0.5); EOS % 1.3 % (0.0-3.0); HEMATOCRIT 39.7 % (36.0-47.0); HEMOGLOBIN 12.1 g/dl (12.0-15.5); LYMPH # 2.5 10^3/uL (1.5-5.0); LYMPH % 21.4 % (24.0-44.0); MEAN CORPUSCULAR HGB CONC 30.5 g/dl (32.0-36.5); MEAN CORPUSCULAR VOLUME 85.4 fl (80.0-96.0); MONO # 0.9 10^3/uL (0.0-0.8); MONO % 7.8 % (2.0-8.0); NEUTROPHILS # 7.9 10^3/uL (1.5-8.5); NEUTROPHILS % 68.4 % (36.0-66.0); PLATELET COUNT, AUTOMATED 445 10^3/uL (150-450); RED BLOOD COUNT 4.65 10^6/uL (4.00-5.40); WHITE BLOOD COUNT 11.6 10^3/uL (4.0-10.0)
[2022-12-19 17:40] LABS: HEMOGLOBIN A1c 5.7 % (4.0-6.0)
== END ==
LOC: M WUC 12:15
PROVIDERS: ATTEND Nurse Practitioner Family
DX: R53.83 Other fatigue (principal)

== ENCOUNTER → 2023-01-24 | Outpatient (REF) | payer OTHER | LOC: M SFHCWAGY 13:10 | PROVIDERS: ATTEND Specialist | DX: N39.0 Urinary tract infection, site not specified (principal) ==

== ENCOUNTER → 2023-02-06 | Outpatient (CLI) | payer OTHER ==
[2023-02-06 16:24] LABS: BASO % 0.5 % (0.0-1.0); EOS # 0.1 10^3/uL (0.0-0.5); EOS % 1.1 % (0.0-3.0); HEMATOCRIT 37.7 % (36.0-47.0); HEMOGLOBIN 11.8 g/dl (12.0-15.5); LYMPH % 22.6 % (24.0-44.0); MEAN CORPUSCULAR HEMOGLOBIN 26.1 pg (27.0-33.0); MEAN CORPUSCULAR HGB CONC 31.3 g/dl (32.0-36.5); MEAN CORPUSCULAR VOLUME 83.4 fl (80.0-96.0); MONO # 0.5 10^3/uL (0.0-0.8); NEUTROPHILS # 6.1 10^3/uL (1.5-8.5); NEUTROPHILS % 69.5 % (36.0-66.0); PLATELET COUNT, AUTOMATED 501 10^3/uL (150-450); RED BLOOD COUNT 4.52 10^6/uL (4.00-5.40); WHITE BLOOD COUNT 8.8 10^3/uL (4.0-10.0)
[2023-02-06 16:57] LABS: ALBUMIN 3.7 G/DL (3.2-5.2); ALKALINE PHOSPHATASE 59 U/L (46-116); ALT/SGPT 27 U/L (7.0-40); AST/SGOT 13 U/L (<34); BILIRUBIN,TOTAL 0.5 MG/DL (0.3-1.2); BLOOD UREA NITROGEN 10 MG/DL (9-23); CALCIUM LEVEL 8.9 MG/DL (8.5-10.1); CARBON DIOXIDE LEVEL 27 MMOL/L (20-31); CHLORIDE LEVEL 103 MMOL/L (98-107); CREATININE FOR GFR 0.66 MG/DL (0.55-1.30); GLOMERULAR FILTRATION RATE > 60.0 (>58); GLUCOSE, FASTING 88 MG/DL (60-100); IRON (FE) 28 UG/DL (50-170); PERCENT SATURATION 7.3 % (13.2-45.0); POTASSIUM SERUM 4.3 MMOL/L (3.5-5.1); SODIUM LEVEL 138 MMOL/L (136-145); TOTAL IRON BINDING CAPACITY 381 UG/DL (250-425); TOTAL PROTEIN 7.1 G/DL (5.7-8.2); VITAMIN B12 LEVEL 270 PG/ML (211-911)
[2023-02-06 16:58] LABS: FREE T4 1.05 NG/DL (0.89-1.76)
[2023-02-06 16:59] LABS: FERRITIN 11.6 NG/ML (7.3-270.7); FOLATE 14.23 NG/ML (>5.4)
[2023-02-06 17:00] LABS: THYROID STIMULATING HORMONE 1.245 uIU/ML (0.55-4.78)
== END ==
LOC: M WUC 10:57
PROVIDERS: ATTEND Family Medicine
DX: D64.9 Anemia, unspecified (principal); R05.9 Cough, unspecified; E07.9 Disorder of thyroid, unspecified

== ENCOUNTER → 2023-04-02 | Outpatient (CLI) | payer OTHER ==
[2023-04-02 10:46] LABS: HEMATOCRIT 40.2 % (36.0-47.0); HEMOGLOBIN 12.6 g/dl (12.0-15.5); MEAN CORPUSCULAR HEMOGLOBIN 26.6 pg (27.0-33.0); MEAN CORPUSCULAR HGB CONC 31.3 g/dl (32.0-36.5); PLATELET COUNT, AUTOMATED 451 10^3/uL (150-450); RED BLOOD COUNT 4.73 10^6/uL (4.00-5.40); WHITE BLOOD COUNT 7.6 10^3/uL (4.0-10.0)
[2023-04-02 10:58] LABS: ERYTHROCYTE SEDIMENTATION RATE 28 mm/hr (0-20)
[2023-04-02 11:11] LABS: ALBUMIN 3.5 G/DL (3.2-5.2); ALKALINE PHOSPHATASE 56 U/L (46-116); ALT/SGPT 28 U/L (7.0-40); AST/SGOT 14 U/L (<34); BILIRUBIN,TOTAL 0.4 MG/DL (0.3-1.2); BLOOD UREA NITROGEN 11 MG/DL (9-23); CALCIUM LEVEL 8.6 MG/DL (8.5-10.1); CARBON DIOXIDE LEVEL 26 MMOL/L (20-31); CHLORIDE LEVEL 105 MMOL/L (98-107); CREATININE FOR GFR 0.78 MG/DL (0.55-1.30); GLOMERULAR FILTRATION RATE > 60.0 (>58); GLUCOSE, FASTING 96 MG/DL (60-100); POTASSIUM SERUM 4.1 MMOL/L (3.5-5.1); SODIUM LEVEL 136 MMOL/L (136-145); TOTAL PROTEIN 6.9 G/DL (5.7-8.2)
== END ==
LOC: M WUC 08:34
PROVIDERS: ATTEND Student in an Organized Health Care Education/Training Program
DX: M79.606 Pain in leg, unspecified (principal)

== ENCOUNTER → 2023-08-27 | Outpatient (CLI) | payer OTHER ==
[2023-08-27 12:51] LABS: BASO # 0.1 10^3/uL (0.0-0.2); BASO % 0.9 % (0.0-1.0); EOS # 0.1 10^3/uL (0.0-0.5); EOS % 1.3 % (0.0-3.0); HEMATOCRIT 39.6 % (36.0-47.0); HEMOGLOBIN 12.7 g/dl (12.0-15.5); LYMPH # 2.7 10^3/uL (1.5-5.0); LYMPH % 30.6 % (24.0-44.0); MEAN CORPUSCULAR HEMOGLOBIN 27.9 pg (27.0-33.0); MEAN CORPUSCULAR HGB CONC 32.1 g/dl (32.0-36.5); MEAN CORPUSCULAR VOLUME 86.8 fl (80.0-96.0); MONO # 0.6 10^3/uL (0.0-0.8); NEUTROPHILS # 5.3 10^3/uL (1.5-8.5); NEUTROPHILS % 59.9 % (36.0-66.0); PLATELET COUNT, AUTOMATED 480 10^3/uL (150-450); RED BLOOD COUNT 4.56 10^6/uL (4.00-5.40); WHITE BLOOD COUNT 8.8 10^3/uL (4.0-10.0)
[2023-08-27 13:29] LABS: ALBUMIN 3.5 G/DL (3.2-5.2); ALKALINE PHOSPHATASE 55 U/L (46-116); ALT/SGPT 30 U/L (7.0-40); AST/SGOT 18 U/L (<34); BILIRUBIN,TOTAL 0.4 MG/DL (0.3-1.2); BLOOD UREA NITROGEN 9 MG/DL (9-23); CALCIUM LEVEL 8.8 MG/DL (8.5-10.1); CARBON DIOXIDE LEVEL 26 MMOL/L (20-31); CHLORIDE LEVEL 104 MMOL/L (98-107); CHOLESTEROL LEVEL 147 MG/DL (<200); CHOLESTEROL RISK RATIO 2.81 (<5); CREATININE FOR GFR 0.67 MG/DL (0.55-1.30); FERRITIN 11.4 NG/ML (7.3-270.7); GLOMERULAR FILTRATION RATE > 60.0 (>58); GLUCOSE, FASTING 87 MG/DL (60-100); HDL CHOLESTEROL 52.3 MG/DL (>40); LDL CHOLESTEROL 74.7 MG/DL (<100); NON-HDL-C 94.7 MG/DL; SODIUM LEVEL 135 MMOL/L (136-145); THYROID STIMULATING HORMONE 1.035 uIU/ML (0.55-4.78); TOTAL PROTEIN 7.2 G/DL (5.7-8.2); TRIGLYCERIDES LEVEL 100 MG/DL (<150)
== END ==
LOC: M WUC 11:01
PROVIDERS: ATTEND Family Medicine
DX: K21.9 Gastro-esophageal reflux disease without esophagitis (principal); D64.9 Anemia, unspecified; Z13.220 Encounter for screening for lipoid disorders; E07.9 Disorder of thyroid, unspecified

== ENCOUNTER → 2023-09-19 | Outpatient (CLI) | payer OTHER | LOC: M PLAIMG 10:39 | PROVIDERS: ATTEND Internal Medicine Rheumatology | DX: M54.9 Dorsalgia, unspecified (principal); M25.561 Pain in right knee ==

== ENCOUNTER → 2023-10-10 | Outpatient (CLI) | payer OTHER ==
[2023-10-10 19:22] LABS: AMYLASE 26 U/L (30-118)
[2023-10-10 19:23] LABS: LIPASE 38 U/L (12-53)
== END ==
LOC: M PLALAB 15:04
PROVIDERS: ATTEND Physician Assistant Medical
DX: R10.84 Generalized abdominal pain (principal); R11.0 Nausea

== ENCOUNTER → 2023-11-13 | Outpatient (REF) | payer OTHER | LOC: M SFHCWAGY 18:14 | PROVIDERS: ATTEND Specialist | DX: Z01.419 Encounter for gynecological examination (general) (routine) without abnormal findings (principal) | CPT/HCPCS: 87624; G0123 ==

== ENCOUNTER 2023-11-20 07:58 | Day surgery (SDC) | payer OTHER ==
[~2023-11-20] VITALS: Ht 160 cm; Wt 95.7 kg
[2023-11-20] MEDS: NS 1,000 ML IV ONE (08:17)
[2023-11-20] MEDS ORDERED: LIDOCAINE 2% 100MG/5ML SDV (FOR ANES.) As Ordered ONE (08:59)
[2023-11-20] MEDS ORDERED: fentaNYL 100 MCG/2 ML INJECTION As Ordered ONE (08:59)
[2023-11-20] MEDS ORDERED: propofoL 500 MG/50 ML VIAL As Ordered ONE (08:59)
[2023-11-20 09:27] VITALS: TEMP 98
[2023-11-20 10:11] VITALS: BP 124/68; O2SAT 99
== END 2023-11-20 10:13 | disposition home or self-care (01) ==
LOC: M OPP 07:58
PROVIDERS: ATTEND Internal Medicine Gastroenterology
DX: K64.8 Other hemorrhoids (principal); K63.5 Polyp of colon; K63.89 Other specified diseases of intestine; K58.2 Mixed irritable bowel syndrome; K31.7 Polyp of stomach and duodenum; K29.70 Gastritis, unspecified, without bleeding; G47.30 Sleep apnea, unspecified; Z99.89 Dependence on other enabling machines and devices; Z79.1 Long term (current) use of non-steroidal anti-inflammatories (NSAID); Z79.899 Other long term (current) drug therapy; Z88.1 Allergy status to other antibiotic agents; Z91.040 Latex allergy status; Z91.041 Radiographic dye allergy status
CPT/HCPCS: 43239; 43251; 45380; 88305; J3010

== ENCOUNTER → 2023-11-25 | Outpatient (REF) | payer OTHER | LOC: M LAB REF 17:19 | PROVIDERS: ATTEND Physician Assistant | DX: N30.01 Acute cystitis with hematuria (principal) ==

== ENCOUNTER → 2023-11-26 | Outpatient (CLI) | payer OTHER | LOC: M RAD 12:54 | PROVIDERS: ATTEND Physician Assistant | DX: N30.01 Acute cystitis with hematuria (principal) ==

== ENCOUNTER → 2023-11-26 | Outpatient (CLI) | payer OTHER | LOC: M LAB 13:21 | PROVIDERS: ATTEND Nurse Practitioner Family | DX: N30.01 Acute cystitis with hematuria (principal) ==

== ENCOUNTER → 2023-11-26 | Outpatient (CLI) | payer OTHER ==
[2023-11-26 10:50] LABS: BASO # 0.1 10^3/uL (0.0-0.2); BASO % 0.6 % (0.0-1.0); EOS # 0.1 10^3/uL (0.0-0.5); EOS % 1.4 % (0.0-3.0); HEMATOCRIT 39.2 % (36.0-47.0); HEMOGLOBIN 12.5 g/dl (12.0-15.5); LYMPH # 2.1 10^3/uL (1.5-5.0); MEAN CORPUSCULAR HGB CONC 31.9 g/dl (32.0-36.5); MEAN CORPUSCULAR VOLUME 84.7 fl (80.0-96.0); MONO # 0.6 10^3/uL (0.0-0.8); MONO % 5.7 % (2.0-8.0); NEUTROPHILS # 7.1 10^3/uL (1.5-8.5); NEUTROPHILS % 70.8 % (36.0-66.0); PLATELET COUNT, AUTOMATED 482 10^3/uL (150-450); RED BLOOD COUNT 4.63 10^6/uL (4.00-5.40)
== END ==
LOC: M LAB 09:31
PROVIDERS: ATTEND Physician Assistant
DX: L04.9 Acute lymphadenitis, unspecified (principal)

== ENCOUNTER → 2023-12-17 | Outpatient (CLI) | payer OTHER | LOC: M WHC 11:19 | PROVIDERS: ATTEND Specialist | DX: I88.9 Nonspecific lymphadenitis, unspecified (principal) ==

== ENCOUNTER → 2023-12-24 | Outpatient (CLI) | payer OTHER | LOC: M RAD 07:51 | PROVIDERS: ATTEND Internal Medicine Rheumatology | DX: M25.551 Pain in right hip (principal); M25.552 Pain in left hip ==

== ENCOUNTER → 2024-01-02 | Outpatient (CLI) | payer OTHER | LOC: M RAD 15:46 | PROVIDERS: ATTEND Nurse Practitioner Family | DX: M76.01 Gluteal tendinitis, right hip (principal); M25.551 Pain in right hip; M25.552 Pain in left hip ==

== ENCOUNTER → 2024-02-13 | Outpatient (REF) | payer OTHER | LOC: M LAB REF 12:14 | PROVIDERS: ATTEND Family Medicine | DX: N39.0 Urinary tract infection, site not specified (principal) ==

== ENCOUNTER → 2024-03-13 | Outpatient (CLI) | payer OTHER ==
[2024-03-13 15:13] LABS: BASO # 0.1 10^3/uL (0.0-0.2); BASO % 0.7 % (0.0-1.0); EOS # 0.1 10^3/uL (0.0-0.5); EOS % 1.1 % (0.0-3.0); HEMATOCRIT 37.3 % (36.0-47.0); HEMOGLOBIN 11.4 g/dl (12.0-15.5); LYMPH # 2.5 10^3/uL (1.5-5.0); LYMPH % 25.6 % (24.0-44.0); MEAN CORPUSCULAR HEMOGLOBIN 24.3 pg (27.0-33.0); MEAN CORPUSCULAR HGB CONC 30.6 g/dl (32.0-36.5); MEAN CORPUSCULAR VOLUME 79.4 fl (80.0-96.0); MONO # 0.6 10^3/uL (0.0-0.8); MONO % 6.2 % (2.0-8.0); NEUTROPHILS # 6.4 10^3/uL (1.5-8.5); NEUTROPHILS % 66.2 % (36.0-66.0); PLATELET COUNT, AUTOMATED 486 10^3/uL (150-450); WHITE BLOOD COUNT 9.7 10^3/uL (4.0-10.0)
[2024-03-13 15:26] LABS: HEMOGLOBIN A1c 5.6 % (4.0-6.0)
[2024-03-13 15:44] LABS: IRON (FE) 22 UG/DL (50-170); PERCENT SATURATION 5.2 % (13.2-45.0); TOTAL IRON BINDING CAPACITY 421 UG/DL (250-425)
[2024-03-13 15:45] LABS: ALBUMIN 3.8 G/DL (3.2-5.2); ALKALINE PHOSPHATASE 63 U/L (46-116); ALT/SGPT 25 U/L (7.0-40); AST/SGOT 13 U/L (<34); BILIRUBIN,TOTAL 0.5 MG/DL (0.3-1.2); BLOOD UREA NITROGEN 14 MG/DL (9-23); CALCIUM LEVEL 9.2 MG/DL (8.5-10.1); CARBON DIOXIDE LEVEL 27 MMOL/L (20-31); CHLORIDE LEVEL 103 MMOL/L (98-107); CHOLESTEROL LEVEL 138 MG/DL (<200); CHOLESTEROL RISK RATIO 2.71 (<5); CREATININE FOR GFR 0.72 MG/DL (0.55-1.30); GLOMERULAR FILTRATION RATE > 60.0 (>58); GLUCOSE, FASTING 83 MG/DL (60-100); HDL CHOLESTEROL 50.8 MG/DL (>40); LDL CHOLESTEROL 73.6 MG/DL (<100); NON-HDL-C 87.2 MG/DL; POTASSIUM SERUM 4.3 MMOL/L (3.5-5.1); SODIUM LEVEL 135 MMOL/L (136-145); TOTAL PROTEIN 7.6 G/DL (5.7-8.2); TRIGLYCERIDES LEVEL 68 MG/DL (<150)
[2024-03-13 15:48] LABS: FERRITIN 11.7 NG/ML (7.3-270.7); FOLATE 17.3 NG/ML (>5.4); FOLLICLE STIMULATING HORMONE 2.3 mIU/ML; LUTEINIZING HORMONE 1.7 mIU/ML
[2024-03-13 15:50] LABS: VITAMIN B12 LEVEL 440 PG/ML (211-911)
[2024-03-13 15:51] LABS: PROGESTERONE 2.01 NG/ML
== END ==
LOC: M PLALAB 11:13
PROVIDERS: ATTEND Family Medicine
DX: E55.9 Vitamin D deficiency, unspecified (principal); D64.9 Anemia, unspecified; M79.10 Myalgia, unspecified site; J31.0 Chronic rhinitis; N95.1 Menopausal and female climacteric states; E07.9 Disorder of thyroid, unspecified

== ENCOUNTER → 2024-08-25 | Outpatient (CLI) | payer OTHER ==
[2024-08-25 16:44] LABS: APPEARANCE, URINE CLEAR (CLEAR); BACTERIA, URINE AUTO NEGATIVE (NEGATIVE); BILIRUBIN, URINE AUTO NEGATIVE (NEGATIVE); BLOOD, URINE BLOOD NEGATIVE (NEGATIVE); COLOR, URINE STRAW (YELLOW); GLUCOSE, URINE (UA) AUTO NEGATIVE (NEGATIVE); KETONE, URINE AUTO NEGATIVE (NEGATIVE); LEUKOCYTE ESTERASE, URINE AUTO NEGATIVE (NEGATIVE); NITRITE, URINE AUTO NEGATIVE (NEGATIVE); PROTEIN, URINE AUTO NEGATIVE (NEGATIVE); RBC, URINE AUTO 0 /HPF (0-3); SQUAMOUS EPITHELIAL CELL UR AU 5 /HPF (0-6); UROBILINOGEN, URINE AUTO 0.2 mg/dL (0.0-2.0); WBC, URINE AUTO 1 /HPF (0-3)
== END ==
LOC: M WUC 12:03
PROVIDERS: ATTEND Family Medicine
DX: R31.0 Gross hematuria (principal)

== ENCOUNTER → 2024-11-04 | Outpatient (CLI) | payer OTHER ==
[2024-11-04 16:21] LABS: BASO # 0.1 10^3/uL (0.0-0.2); BASO % 0.6 % (0.0-1.0); EOS # 0.1 10^3/uL (0.0-0.5); EOS % 1.1 % (0.0-3.0); HEMOGLOBIN 13.2 g/dl (12.0-15.5); LYMPH # 2.4 10^3/uL (1.5-5.0); LYMPH % 22.7 % (24.0-44.0); MEAN CORPUSCULAR HEMOGLOBIN 27.8 pg (27.0-33.0); MEAN CORPUSCULAR HGB CONC 32.2 g/dl (32.0-36.5); MEAN CORPUSCULAR VOLUME 86.5 fl (80.0-96.0); MONO # 0.7 10^3/uL (0.0-0.8); MONO % 6.4 % (2.0-8.0); NEUTROPHILS # 7.2 10^3/uL (1.5-8.5); NEUTROPHILS % 68.8 % (36.0-66.0); PLATELET COUNT, AUTOMATED 440 10^3/uL (150-450); RED BLOOD COUNT 4.74 10^6/uL (4.00-5.40); WHITE BLOOD COUNT 10.5 10^3/uL (4.0-10.0)
[2024-11-04 16:57] LABS: FERRITIN 36.6 NG/ML (7.3-270.7); IRON (FE) 39 UG/DL (50-170); THYROID STIMULATING HORMONE 1.412 uIU/ML (0.55-4.78)
[2024-11-04 16:58] LABS: ALBUMIN 3.7 G/DL (3.2-5.2); ALKALINE PHOSPHATASE 62 U/L (35-104); ALT/SGPT 36 U/L (7.0-40); AST/SGOT 23 U/L (<34); BILIRUBIN,TOTAL 0.6 MG/DL (0.3-1.2); BLOOD UREA NITROGEN 15 MG/DL (9-23); CALCIUM LEVEL 9.2 MG/DL (8.5-10.1); CARBON DIOXIDE LEVEL 26 MMOL/L (20-31); CHLORIDE LEVEL 104 MMOL/L (98-107); CREATININE FOR GFR 0.74 MG/DL (0.55-1.30); GLOMERULAR FILTRATION RATE > 60.0 (>58); GLUCOSE, FASTING 96 MG/DL (60-100); MAGNESIUM LEVEL 1.8 MG/DL (1.8-2.4); PERCENT SATURATION 10.8 % (13.2-45.0); POTASSIUM SERUM 3.8 MMOL/L (3.5-5.1); SODIUM LEVEL 137 MMOL/L (136-145); TOTAL IRON BINDING CAPACITY 361 UG/DL (250-425); TOTAL PROTEIN 7.7 G/DL (5.7-8.2)
[2024-11-04 16:59] LABS: FREE T4 1.32 NG/DL (0.89-1.76)
== END ==
LOC: M WUC 11:36
PROVIDERS: ATTEND Family Medicine
DX: D50.9 Iron deficiency anemia, unspecified (principal); M45.9 Ankylosing spondylitis of unspecified sites in spine; K21.9 Gastro-esophageal reflux disease without esophagitis

== ENCOUNTER → 2024-12-04 | Outpatient (REF) | payer OTHER | LOC: M SFHCWAGY 13:14 | PROVIDERS: ATTEND Specialist | DX: Z12.4 Encounter for screening for malignant neoplasm of cervix (principal) | CPT/HCPCS: 87624; G0123 ==

== ENCOUNTER → 2025-01-09 | Outpatient (CLI) | payer OTHER | LOC: M SLEEP HO 11:28 | PROVIDERS: ATTEND Internal Medicine Critical Care Medicine | DX: G47.33 Obstructive sleep apnea (adult) (pediatric) (principal) ==

== ENCOUNTER → 2025-01-21 | Outpatient (REF) | payer OTHER | LOC: M LAB REF 16:37 | PROVIDERS: ATTEND Nurse Practitioner Family | DX: R30.0 Dysuria (principal) ==

== ENCOUNTER → 2025-02-10 | Outpatient (REF) | payer OTHER ==
[2025-02-10 17:28] LABS: APPEARANCE, URINE HAZY (CLEAR); BACTERIA, URINE AUTO NEGATIVE (NEGATIVE); BILIRUBIN, URINE AUTO NEGATIVE (NEGATIVE); BLOOD, URINE BLOOD 2+ (NEGATIVE); COLOR, URINE STRAW (YELLOW); GLUCOSE, URINE (UA) AUTO NEGATIVE (NEGATIVE); KETONE, URINE AUTO NEGATIVE (NEGATIVE); LEUKOCYTE ESTERASE, URINE AUTO NEGATIVE (NEGATIVE); MUCUS, URINE SMALL (NEGATIVE); NITRITE, URINE AUTO NEGATIVE (NEGATIVE); PROTEIN, URINE AUTO NEGATIVE (NEGATIVE); RBC, URINE AUTO 2 /HPF (0-3); SPECIFIC GRAVITY URINE AUTO 1.005 (1.002-1.035); SQUAMOUS EPITHELIAL CELL UR AU 6 /HPF (0-6); UROBILINOGEN, URINE AUTO 0.2 mg/dL (0.0-2.0); WBC, URINE AUTO 2 /HPF (0-3)
== END ==
LOC: M LAB REF 16:51
PROVIDERS: ATTEND Family Medicine
DX: R30.0 Dysuria (principal)

== ENCOUNTER → 2025-05-28 | Outpatient (REF) | payer OTHER ==
[2025-05-28 14:59] LABS: CALCIUM LEVEL 9.3 MG/DL (8.5-10.1); CARBON DIOXIDE LEVEL 28 MMOL/L (20-31); CHLORIDE LEVEL 104 MMOL/L (98-107); CREATININE FOR GFR 0.77 MG/DL (0.55-1.30); GLOMERULAR FILTRATION RATE > 90.0 (>58); MAGNESIUM LEVEL 1.9 MG/DL (1.8-2.4); POTASSIUM SERUM 4.3 MMOL/L (3.5-5.1); SODIUM LEVEL 143 MMOL/L (136-145)
== END ==
LOC: M LABDRWAD 13:29
PROVIDERS: ATTEND Internal Medicine Cardiovascular Disease
DX: R00.2 Palpitations (principal)

== ENCOUNTER → 2025-06-25 | Outpatient (CLI) | payer OTHER ==
[~2025-06-25] MED LIST changes: -IBUP-1022 PO; +IBUP600T42 PO
[2025-06-25 14:09] LABS: BASO # 0.1 10^3/uL (0.0-0.2); BASO % 0.5 % (0.0-1.0); EOS # 0.2 10^3/uL (0.0-0.5); EOS % 1.9 % (0.0-3.0); LYMPH # 2.2 10^3/uL (1.5-5.0); LYMPH % 23.2 % (24.0-44.0); MONO # 0.6 10^3/uL (0.0-0.8); MONO % 5.8 % (2.0-8.0); NEUTROPHILS # 6.4 10^3/uL (1.5-8.5); NEUTROPHILS % 68.3 % (36.0-66.0); PLATELET COUNT, AUTOMATED 452 10^3/uL (150-450)
[2025-06-25 14:12] LABS: ALT/SGPT 26 U/L (7.0-40); AST/SGOT 21 U/L (<34); CALCIUM LEVEL 9.2 MG/DL (8.5-10.1); CARBON DIOXIDE LEVEL 28 MMOL/L (20-31); CHLORIDE LEVEL 104 MMOL/L (98-107); CREATININE FOR GFR 0.71 MG/DL (0.55-1.30); GLOMERULAR FILTRATION RATE > 90.0 (>58); IRON (FE) 42 UG/DL (50-170); PERCENT SATURATION 12.5 % (13.2-45.0); POTASSIUM SERUM 4.1 MMOL/L (3.5-5.1); SODIUM LEVEL 141 MMOL/L (136-145)
== END ==
LOC: M LABDRWAD 10:11
PROVIDERS: ATTEND Family Medicine
DX: Z00.00 Encounter for general adult medical examination without abnormal findings (principal); D50.9 Iron deficiency anemia, unspecified; E07.9 Disorder of thyroid, unspecified

== ENCOUNTER → 2025-07-30 | Outpatient (REF) | payer OTHER ==
[2025-07-30 15:03] LABS: CHOLESTEROL LEVEL 138.0 MG/DL (<200); CHOLESTEROL RISK RATIO 2.75 (<5); LDL CHOLESTEROL 69.3 MG/DL (<100); NON-HDL-C 87.9 MG/DL; TRIGLYCERIDES LEVEL 93.0 MG/DL (<150)
== END ==
LOC: M LABDRWAD 13:03
PROVIDERS: ATTEND Internal Medicine Cardiovascular Disease
DX: R07.9 Chest pain, unspecified (principal)

== ENCOUNTER → 2025-08-28 | Outpatient (CLI) | payer OTHER | LOC: M WUC 11:03 | DX: R06.02 Shortness of breath (principal) ==

== ENCOUNTER 2025-09-10 15:29 | Inpatient (IN) | payer OTHER ==
[~2025-09-10] VITALS: Ht 160 cm; Wt 100.7 kg
[2025-09-10 16:18] LABS: BASO # 0.1 10^3/uL (0.0-0.2); BASO % 0.6 % (0.0-1.0); EOS # 0.2 10^3/uL (0.0-0.5); EOS % 1.2 % (0.0-3.0); LYMPH # 2.8 10^3/uL (1.5-5.0); LYMPH % 17.3 % (24.0-44.0); MONO # 0.9 10^3/uL (0.0-0.8); MONO % 5.9 % (2.0-8.0); NEUTROPHILS # 11.9 10^3/uL (1.5-8.5); NEUTROPHILS % 74.6 % (36.0-66.0); PLATELET COUNT, AUTOMATED 504 10^3/uL (150-450)
[2025-09-10 16:23] LABS: VENOUS BASE EXCESS -0.3 (-2.0-2.0); VENOUS HCO3 22.0 MMOL/L (23.0-27.0); VENOUS O2 SATURATION 96.2 % (60.0-80.0); VENOUS PARTIAL PRESSURE CO2 29.7 mmHg (38.0-50.0); VENOUS PARTIAL PRESSURE O2 76.4 mmHg (30.0-50.0); VENOUS PH 7.487 UNITS (7.330-7.430); VENOUS STANDARD HCO3 24.2 MMOL/L; VENOUS TOTAL CO2 22.9 MMOL/L (24.0-28.0)
[2025-09-10 16:41] LABS: ALT/SGPT 27 U/L (7.0-40); AST/SGOT 35 U/L (<34); CALCIUM LEVEL 9.1 MG/DL (8.5-10.1); CARBON DIOXIDE LEVEL 22 MMOL/L (20-31); CHLORIDE LEVEL 103 MMOL/L (98-107); CREATININE FOR GFR 0.66 MG/DL (0.55-1.30); GLOMERULAR FILTRATION RATE > 90.0 (>58); POTASSIUM SERUM 4.6 MMOL/L (3.5-5.1); SODIUM LEVEL 138 MMOL/L (136-145)
[2025-09-10 17:03] LABS: INR 0.96
[2025-09-10 17:08] LABS: HCG, SERUM QUALITATIVE NEGATIVE (NEGATIVE)
[2025-09-10] MEDS ORDERED: ISOVUE-370 76% 100 ML VIAL As Ordered ONE (17:14)
[2025-09-10] MEDS: diphenhydrAMINE 50 MG/ML VIAL IV ONE (17:17)
[2025-09-10] MEDS: LEVALBUTEROL 1.25 MG 0.5ML CONCENTRATE NEB INH ONE (17:34)
[2025-09-10 18:14] LABS: KETONE, URINE AUTO RFX NEGATIVE (NEGATIVE); LEUKOCYTE ESTERASE UR AUTO RFX NEGATIVE (NEGATIVE); NITRITE, URINE AUTO RFX NEGATIVE (NEGATIVE); RBC, URINE AUTO RFX 1 /HPF (0-3); SQUAM EPITHELIAL CELL UR AURFX 2 /HPF (0-6); WBC, URINE AUTO RFX 0 /HPF (0-3)
[2025-09-10] MEDS: AMPICILLIN SOD/SULBACTAM SOD 3 GM in DEXTROSE 5% (D5W) MINI-BAG PLU 100 ML IV ONE (19:49)
[2025-09-10] MEDS ORDERED: ACET-897 PO (20:20)
[2025-09-10] MEDS ORDERED: IBUP200T46 PO (20:20)
[2025-09-10] MEDS ORDERED: PANT-23 PO (20:21)
[2025-09-10] MEDS ORDERED: THERTAB52 PO (20:21)
[2025-09-10] MEDS ORDERED: HOME MED LIST COMPLETE! XX SCH (20:25)
[2025-09-10] MEDS: AZITHROMYCIN INJ 500 MG, VIAL MATE ADAPTER 1 EACH in NS 250 ML IV ONE (20:39)
[2025-09-10] MEDS ORDERED: ACETAMINOPHEN 325 MG TAB PO PRN (20:45)
[2025-09-10] MEDS: ONDANSETRON 4MG ORAL DISINTEGRATING TAB PO ONE (21:33)
[2025-09-10] MEDS ORDERED: LEVALBUTEROL HFA 45 MCG/ACT 15 GM INHALER INH PRN (22:25)
[2025-09-11] MEDS ORDERED: BIMA0.036 OU (00:25)
[2025-09-11 00:28] LABS: INR 1.06
[2025-09-11] MEDS: AMPICILLIN SOD/SULBACTAM SOD 3 GM in DEXTROSE 5% (D5W) MINI-BAG PLU 100 ML IV SCH (01:57)
[2025-09-11] MEDS: ALPRAZolam 0.25 MG TAB PO PRN (02:43)
[2025-09-11] MEDS ORDERED: PIPERACILLIN/TAZOBACTAM SOD 3.375 GM in DEXTROSE 5% (D5W) ADV/MINI-BAG 50 ML IV SCH (06:50)
[2025-09-11] MEDS: LEVALBUTEROL 1.25 MG 0.5ML CONCENTRATE NEB INH SCH ×2 (07:18→13:29)
[2025-09-11 08:33] VITALS: BP 132/66; TEMP 99; O2SAT 94
[2025-09-11] MEDS: PIPERACILLIN/TAZOBACTAM SOD 4.5 GM in DEXTROSE 5% (D5W) ADV/MINI-BAG 50 ML IV SCH ×2 (10:14→16:31)
[2025-09-11] MEDS: PANTOPRAZOLE 40MG TAB PO SCH ×2 (10:18→21:22)
[2025-09-11] MEDS: HEPARIN SOD 5000 UNITS/ML 1 ML VIAL/SYRINGE SC SCH (10:18)
[2025-09-11 11:44] VITALS: BP 139/76; TEMP 98.6; O2SAT 98
[2025-09-11] MEDS ORDERED: LORazepam 0.5 MG TAB PO PRN (12:35)
[2025-09-11] MEDS ORDERED: LEVALBUTEROL HFA 45 MCG/ACT 15 GM INHALER INH PRN (12:40)
[2025-09-11] MEDS ORDERED: AZITHROMYCIN INJ 500 MG, VIAL MATE ADAPTER 1 EACH in NS 250 ML IV SCH (19:00)
[2025-09-11] MEDS: AZITHROMYCIN INJ 500 MG, VIAL MATE ADAPTER 1 EACH in NS 250 ML IV SCH (19:05)
[2025-09-11 20:00] VITALS: TEMP 98.1; O2SAT 95
[2025-09-11] MEDS ORDERED: AZITHROMYCIN 250 MG TABLET PO SCH (21:00)
[2025-09-11] MEDS: SYMBICORT 160/4.5MCG INHALER 6GM INH SCH (23:21)
[2025-09-12 04:00] VITALS: TEMP 98.1; O2SAT 94
[2025-09-12 08:02] LABS: BASO # 0.1 10^3/uL (0.0-0.2); BASO % 0.2 % (0.0-1.0); EOS # 0.0 10^3/uL (0.0-0.5); EOS % 0.0 % (0.0-3.0); LYMPH # 1.5 10^3/uL (1.5-5.0); LYMPH % 3.4 % (24.0-44.0); MONO # 0.7 10^3/uL (0.0-0.8); MONO % 1.7 % (2.0-8.0); NEUTROPHILS # 40.8 10^3/uL (1.5-8.5); NEUTROPHILS % 93.2 % (36.0-66.0); PLATELET COUNT, AUTOMATED 524 10^3/uL (150-450)
[2025-09-12 08:27] LABS: CALCIUM LEVEL 9.3 MG/DL (8.5-10.1); CARBON DIOXIDE LEVEL 21 MMOL/L (20-31); CHLORIDE LEVEL 104 MMOL/L (98-107); CREATININE FOR GFR 0.65 MG/DL (0.55-1.30); GLOMERULAR FILTRATION RATE > 90.0 (>58); POTASSIUM SERUM 4.4 MMOL/L (3.5-5.1); SODIUM LEVEL 140 MMOL/L (136-145)
[2025-09-12] MEDS: ALPRAZolam 0.25 MG TAB PO PRN (09:06)
[2025-09-12 12:00] VITALS: TEMP 98.2; O2SAT 96
[2025-09-12 20:00] VITALS: TEMP 97.3; O2SAT 97
[2025-09-13 04:00] VITALS: TEMP 97.9; O2SAT 97
[2025-09-13 07:29] LABS: BASO # 0.1 10^3/uL (0.0-0.2); BASO % 0.2 % (0.0-1.0); EOS # 0.0 10^3/uL (0.0-0.5); EOS % 0.0 % (0.0-3.0); LYMPH # 1.2 10^3/uL (1.5-5.0); LYMPH % 4.1 % (24.0-44.0); MONO # 0.4 10^3/uL (0.0-0.8); MONO % 1.4 % (2.0-8.0); NEUTROPHILS # 27.7 10^3/uL (1.5-8.5); NEUTROPHILS % 92.6 % (36.0-66.0); PLATELET COUNT, AUTOMATED 506 10^3/uL (150-450)
[2025-09-13 08:03] LABS: CALCIUM LEVEL 9.1 MG/DL (8.5-10.1); CARBON DIOXIDE LEVEL 23 MMOL/L (20-31); CHLORIDE LEVEL 103 MMOL/L (98-107); CREATININE FOR GFR 0.69 MG/DL (0.55-1.30); GLOMERULAR FILTRATION RATE > 90.0 (>58); POTASSIUM SERUM 4.3 MMOL/L (3.5-5.1); SODIUM LEVEL 139 MMOL/L (136-145)
[2025-09-13] MEDS: HEPARIN SOD 5000 UNITS/ML 1 ML VIAL/SYRINGE SC SCH (10:00)
[2025-09-13 12:00] VITALS: BP 133/64; TEMP 97.9; O2SAT 91
[2025-09-13 15:39] VITALS: BP 157/76; TEMP 98.2; O2SAT 96
[2025-09-13] MEDS: ACETAMINOPHEN 325 MG/10.15 ML UDC PO ONE (17:07)
[2025-09-13] MEDS: KETOROLAC TROMETHAMINE 10 MG TAB PO ONE (17:24)
[2025-09-13] MEDS: predniSONE 20 MG TAB PO SCH (18:18)
[2025-09-13 20:00] VITALS: BP 131/72; TEMP 98.6; O2SAT 95
[2025-09-13] MEDS: CEFPODOXIME PROXETIL 200 MG TABLET PO SCH (21:55)
[2025-09-13 22:30] VITALS: BP 141/70; TEMP 98.2; O2SAT 98
[2025-09-14 06:00] VITALS: BP 137/82; TEMP 98.2; O2SAT 93
[2025-09-14 07:05] LABS: BASO # 0.0 10^3/uL (0.0-0.2); BASO % 0.2 % (0.0-1.0); EOS # 0.0 10^3/uL (0.0-0.5); EOS % 0.0 % (0.0-3.0); LYMPH # 1.7 10^3/uL (1.5-5.0); LYMPH % 10.1 % (24.0-44.0); MONO # 0.7 10^3/uL (0.0-0.8); MONO % 4.3 % (2.0-8.0); NEUTROPHILS # 14.2 10^3/uL (1.5-8.5); NEUTROPHILS % 84.3 % (36.0-66.0); PLATELET COUNT, AUTOMATED 494 10^3/uL (150-450)
[2025-09-14 07:29] LABS: CALCIUM LEVEL 8.6 MG/DL (8.5-10.1); CARBON DIOXIDE LEVEL 26 MMOL/L (20-31); CHLORIDE LEVEL 104 MMOL/L (98-107); CREATININE FOR GFR 0.77 MG/DL (0.55-1.30); GLOMERULAR FILTRATION RATE > 90.0 (>58); POTASSIUM SERUM 4.3 MMOL/L (3.5-5.1); SODIUM LEVEL 140 MMOL/L (136-145)
[2025-09-14 08:45] VITALS: BP 135/68; TEMP 98.3; O2SAT 94
[2025-09-14] MEDS ORDERED: CEFP200T PO (11:17)
[2025-09-14] MEDS ORDERED: SYMB16INH INH (11:17)
[2025-09-14] MEDS ORDERED: PRED10TA2 PO (11:17)
[2025-09-14] MEDS ORDERED: LEVA15HF2 INH (11:17)
[2025-09-14] MEDS ORDERED: PROBCAP14 PO (11:17)
[2025-09-14] MEDS ORDERED: MICO2CRE7 PV (11:26)
== END 2025-09-14 13:25 | disposition home or self-care (01) | DRG 195 ==
LOC: M ED 15:29 → M ED INP 15:30 → M MS4PR 09-11 08:57 → OBSVTOIN 09-12 08:43 → M PED 09-13 15:23
PROVIDERS: ADMIT Student in an Organized Health Care Education/Training Program; ATTEND Student in an Organized Health Care Education/Training Program
DX: J18.9 Pneumonia, unspecified organism (principal); K21.9 Gastro-esophageal reflux disease without esophagitis; I34.0 Nonrheumatic mitral (valve) insufficiency; F41.9 Anxiety disorder, unspecified; M79.7 Fibromyalgia; G43.909 Migraine, unspecified, not intractable, without status migrainosus; G89.29 Other chronic pain; Z91.040 Latex allergy status; Z88.8 Allergy status to other drugs, medicaments and biological substances; Z79.899 Other long term (current) drug therapy; M45.9 Ankylosing spondylitis of unspecified sites in spine

== ENCOUNTER → 2025-09-23 | Outpatient (REF) | payer OTHER ==
[~2025-09-23] MED LIST changes: +ACET-897 PO; +BIMA0.036 OU; +CEFP200T PO; +IBUP200T46 PO; +LEVA15HF2 INH; +MICO2CRE7 PV; +PANT-23 PO; +PRED10TA2 PO; +PROBCAP14 PO; +SYMB16INH INH; +THERTAB52 PO
== END ==
LOC: M LAB REF 16:55
DX: N39.0 Urinary tract infection, site not specified (principal)

== ENCOUNTER → 2025-09-24 | Outpatient (CLI) | payer OTHER ==
[2025-09-24 07:59] LABS: BASO # 0.1 10^3/uL (0.0-0.2); BASO % 0.3 % (0.0-1.0); EOS # 0.1 10^3/uL (0.0-0.5); EOS % 0.8 % (0.0-3.0); LYMPH # 4.0 10^3/uL (1.5-5.0); LYMPH % 23.6 % (24.0-44.0); MONO # 1.1 10^3/uL (0.0-0.8); MONO % 6.6 % (2.0-8.0); NEUTROPHILS # 11.4 10^3/uL (1.5-8.5); NEUTROPHILS % 68.2 % (36.0-66.0); PLATELET COUNT, AUTOMATED 389 10^3/uL (150-450)
[2025-09-24 08:23] LABS: ALT/SGPT 40 U/L (7.0-40); AST/SGOT 15 U/L (<34); C REACTIVE PROTEIN QUANTITATIV 0.74 MG/DL (<1.0); CALCIUM LEVEL 9.2 MG/DL (8.5-10.1); CARBON DIOXIDE LEVEL 28 MMOL/L (20-31); CHLORIDE LEVEL 99 MMOL/L (98-107); CHOLESTEROL LEVEL 158 MG/DL (<200); CHOLESTEROL RISK RATIO 2.47 (<5); CREATININE FOR GFR 0.83 MG/DL (0.55-1.30); GLOMERULAR FILTRATION RATE 86.4 (>58); IRON (FE) 55 UG/DL (50-170); LDL CHOLESTEROL 69.7 MG/DL (<100); NON-HDL-C 94.1 MG/DL; PERCENT SATURATION 16.3 % (13.2-45.0); POTASSIUM SERUM 3.7 MMOL/L (3.5-5.1); SODIUM LEVEL 136 MMOL/L (136-145); TRIGLYCERIDES LEVEL 122 MG/DL (<150)
== END ==
LOC: M LAB 07:28
DX: J18.9 Pneumonia, unspecified organism (principal); D50.9 Iron deficiency anemia, unspecified; R07.9 Chest pain, unspecified; Z13.220 Encounter for screening for lipoid disorders

== ENCOUNTER → 2025-09-27 | Outpatient (CLI) | payer OTHER ==
[2025-09-27 14:27] LABS: APPEARANCE, URINE HAZY (CLEAR); BACTERIA, URINE AUTO NEGATIVE (NEGATIVE); BILIRUBIN, URINE AUTO NEGATIVE (NEGATIVE); BLOOD, URINE BLOOD 3+ (NEGATIVE); GLUCOSE, URINE (UA) AUTO NEGATIVE (NEGATIVE); KETONE, URINE AUTO NEGATIVE (NEGATIVE); LEUKOCYTE ESTERASE, URINE AUTO NEGATIVE (NEGATIVE); MUCUS, URINE SMALL (NEGATIVE); NITRITE, URINE AUTO NEGATIVE (NEGATIVE); PROTEIN, URINE AUTO NEGATIVE (NEGATIVE); RBC, URINE AUTO 34 /HPF (0-3); SPECIFIC GRAVITY URINE AUTO 1.024 (1.002-1.035); SQUAMOUS EPITHELIAL CELL UR AU 9 /HPF (0-6); UROBILINOGEN, URINE AUTO 0.2 mg/dL (0.0-2.0); WBC, URINE AUTO 0 /HPF (0-3)
== END ==
LOC: M LAB 13:55
PROVIDERS: ATTEND Family Medicine
DX: R30.0 Dysuria (principal)

== ENCOUNTER → 2025-09-28 | Outpatient (REF) | payer OTHER | LOC: M LAB REF 15:07 | PROVIDERS: ATTEND Family Medicine | DX: R19.7 Diarrhea, unspecified (principal) ==